=== PATIENT | male | born 1995 | race Hispanic/Latino ===

== ENCOUNTER 2019-07-26 03:52 | Emergency (ER) | payer OTHER ==
[2019-07-26] MEDS ORDERED: LIDOCAINE HCL 2% JELLY 5 ML ONE (04:37)
[2019-07-26] MEDS ORDERED: IBUPROFEN 600 MG TABLET ONE (04:37)
[2019-07-26] MEDS ORDERED: CLINDAMYCIN HCL 150 MG CAP ONE (04:37)
== END 2019-07-26 04:48 | disposition home or self-care (01) ==
LOC: EDH 03:52
DX: K04.7 Periapical abscess without sinus (principal); K05.10 Chronic gingivitis, plaque induced; Z88.0 Allergy status to penicillin

== ENCOUNTER 2022-06-13 14:33 | Emergency (ER) | payer OTHER ==
[~2022-06-13] VITALS: Ht 165.1 cm; Wt 83.9 kg
[2022-06-13 17:39] LABS: BASOPHILS % (AUTO) 0.4 % (0.0-5.0); EOSINOPHILS % (AUTO) 0.3 % (0.0-8.0); HEMATOCRIT 50.5 % (42-54); LYMPHOCYTES % (AUTO) 10.3 % (21.0-51.0); MEAN CORPUSCULAR HEMOGLOBIN 28.1 pg (27.0-33.0); MEAN CORPUSCULAR HGB CONC 33.1 g/dL (32.0-36.0); MEAN CORPUSCULAR VOLUME 84.9 fL (79-99); MONOCYTES % (AUTO) 3.7 % (3.0-13.0); PLATELET COUNT (AUTO) 368 K/uL (130-400); RED BLOOD CELL COUNT(AUTO) 5.95 MIL/uL (4.50-6.20); RED CELL DISTRIBUTION WIDTH 13.8 % (11.0-15.5); WHITE BLOOD COUNT (AUTO) 11.3 K/uL (4.8-10.8)
[2022-06-13] MEDS ORDERED: LACTULOSE 20 GM/30 ML UDCUP PO ONE (17:40)
[2022-06-13 17:50] LABS: CREATININE 1.1 mg/dL (0.5-1.5); POTASSIUM 3.7 mmol/L (3.5-5.1)
[2022-06-13 17:52] LABS: ALBUMIN 3.9 g/dL (3.5-5.0); TOTAL PROTEIN, SERUM 9.3 g/dL (6.0-8.3)
[2022-06-13] MEDS ORDERED: PEG 3350/NA SULF,BICARB,CL/KCL 4000 ML SOLN PO ONE (18:00)
[2022-06-13] MEDS ORDERED: IOHEXOL 350 MG/ML 100ML INFUS..BTL IV ONE (18:23)
[2022-06-13 19:30] VITALS: BP 114/69
== END 2022-06-13 19:49 | disposition home or self-care (01) ==
LOC: EDH 14:33
DX: C62.90 Malignant neoplasm of unspecified testis, unspecified whether descended or undescended (principal); Z88.0 Allergy status to penicillin
CPT/HCPCS: 99285; 71260; 83615; 80053; 84703; 85025; 82105; 36415; 74177; 76870; Q9967

== ENCOUNTER 2022-06-17 15:55 | Inpatient (IN) | payer OTHER ==
[~2022-06-17] VITALS: Ht 165.1 cm; Wt 81.6 kg
[2022-06-17] MEDS ORDERED: CEFAZOLIN SODIUM 1 GM VIAL IVP PRN (18:00)
[2022-06-17 18:58] LABS: HCG,QUANTITATIVE 217 mIU/mL (0-5); LACTATE DEHYDROGENASE 371 U/L (81-234)
[2022-06-17] MEDS ORDERED: ZOLPIDEM TARTRATE 5 MG TAB PO PRN (21:00)
[2022-06-17] MEDS ORDERED: ACETAMINOPHEN 325 MG TAB PO PRN ×2 (21:00)
[2022-06-17] MEDS ORDERED: ONDANSETRON 4MG INJ IV PRN (21:00)
[2022-06-17] MEDS ORDERED: MORPHINE 2 MG SYG IV PRN (21:00)
[2022-06-17] MEDS ORDERED: MORPHINE 4 MG SYG IV PRN (21:00)
[2022-06-17 21:30] LABS: BASOPHILS % (AUTO) 0.3 % (0.0-5.0); EOSINOPHILS % (AUTO) 0.2 % (0.0-8.0); HEMATOCRIT 47.3 % (42-54); LYMPHOCYTES % (AUTO) 15.5 % (21.0-51.0); MEAN CORPUSCULAR HEMOGLOBIN 28.2 pg (27.0-33.0); MEAN CORPUSCULAR HGB CONC 33.6 g/dL (32.0-36.0); MONOCYTES % (AUTO) 4.2 % (3.0-13.0); NEUTROPHILS % (AUTO) 79.5 % (40.0-77.0); PLATELET COUNT (AUTO) 386 K/uL (130-400); RED BLOOD CELL COUNT(AUTO) 5.63 MIL/uL (4.50-6.20); RED CELL DISTRIBUTION WIDTH 13.8 % (11.0-15.5); WHITE BLOOD COUNT (AUTO) 12.6 K/uL (4.8-10.8)
[2022-06-17 21:33] LABS: APPEARANCE,URINE CLEAR (CLEAR); BILIRUBIN,URINE NEGATIVE (NEGATIVE); COLOR,URINE LIGHT-YELLOW (YELLOW); GLUCOSE, URINE (UA) NEGATIVE (NEGATIVE); KETONES,URINE NEGATIVE (NEGATIVE); LEUKOCYTE ESTERASE ,URINE NEGATIVE Leu/uL (NEGATIVE); NITRATE,URINE NEGATIVE (NEGATIVE); OCCULT BLOOD,URINE NEGATIVE (NEGATIVE); PH,URINE 6.5 (5.0-8.0); PROTEIN,URINE NEGATIVE (NEGATIVE); UROBILINOGEN,URINE 0.2 mg/dL (0.2-1.0)
[2022-06-17 21:35] LABS: MUCUS,URINE RARE LPF (None Seen); WBC,URINE 0-1 /HPF (0-1)
[2022-06-17 21:38] LABS: POTASSIUM 3.5 mmol/L (3.5-5.1)
[2022-06-17 21:40] LABS: INR 1.01 (0.85-1.15)
[2022-06-17 21:41] LABS: PARTIAL THROMBOPLASTIN TIME 32.7 SEC (26.3-35.5)
[2022-06-17 21:47] LABS: ALBUMIN 3.6 g/dL (3.5-5.0); MAGNESIUM 1.9 mg/dL (1.80-2.40); TOTAL PROTEIN, SERUM 8.6 g/dL (6.0-8.3)
[2022-06-17] MEDS: LACTATED RINGERS 1000ML 1,000 ML IV SCH (22:12)
[2022-06-17] MEDS: FAMOTIDINE 20MG VIAL IV SCH (22:12)
[2022-06-17] MEDS: HEPARIN 5,000 UNIT VIAL SQ SCH (22:12)
[2022-06-18] VITALS (19 sets, daily range): BP systolic 92–134; BP diastolic 52–88
[2022-06-18 05:26] LABS: BASOPHILS % (AUTO) 0.3 % (0.0-5.0); EOSINOPHILS % (AUTO) 0.4 % (0.0-8.0); HEMATOCRIT 46.6 % (42-54); LYMPHOCYTES % (AUTO) 25.6 % (21.0-51.0); MEAN CORPUSCULAR HEMOGLOBIN 28.3 pg (27.0-33.0); MEAN CORPUSCULAR HGB CONC 32.8 g/dL (32.0-36.0); MEAN CORPUSCULAR VOLUME 86.3 fL (79-99); MONOCYTES % (AUTO) 6.1 % (3.0-13.0); NEUTROPHILS % (AUTO) 67.3 % (40.0-77.0); PLATELET COUNT (AUTO) 342 K/uL (130-400); RED CELL DISTRIBUTION WIDTH 13.9 % (11.0-15.5); WHITE BLOOD COUNT (AUTO) 11.5 K/uL (4.8-10.8)
[2022-06-18 05:41] LABS: CREATININE 1.2 mg/dL (0.5-1.5); POTASSIUM 3.8 mmol/L (3.5-5.1)
[2022-06-18] MEDS ORDERED: BUPIVACAINE/PF 0.5% 10ML VIAL ONE (08:19)
[2022-06-18] MEDS: HEPARIN 5,000 UNIT VIAL SQ SCH ×2 (09:00→13:43)
[2022-06-18] MEDS: FAMOTIDINE 20MG VIAL IV SCH (09:00)
[2022-06-18] MEDS: CEFTRIAXONE 1G VIAL ONE ×2 (10:12→10:30)
[2022-06-18] MEDS ORDERED: SUCCINYLCHOLINE 200MG/10ML SYR ONE (10:25)
[2022-06-18] MEDS ORDERED: LIDOCAINE PF 100MG/5ML (2%) SYRINGE 5ML ONE ×2 (10:25→10:28)
[2022-06-18] MEDS ORDERED: ONDANSETRON 4MG INJ ONE (10:25)
[2022-06-18] MEDS ORDERED: MIDAZOLAM HCL 1 MG/ML 2ML VIAL ONE (10:26)
[2022-06-18] MEDS ORDERED: PROPOFOL 10 MG/ML 20ML VIAL IV ONE (10:26)
[2022-06-18] MEDS ORDERED: GLYCOPYRROLATE 1 MG/5 ML SYRINGE ONE (10:26)
[2022-06-18] MEDS ORDERED: NEOSTIGMINE 5MG/5ML SYR IV ONE (10:26)
[2022-06-18] MEDS ORDERED: FENTANYL CITRATE PF 50 MCG/1 ML 2ML VIAL ONE ×2 (10:26→11:26)
[2022-06-18] MEDS ORDERED: ROCURONIUM 10MG/1ML SYR 10 MG/ML ML ONE (10:26)
[2022-06-18] MEDS ORDERED: MEPERIDINE-PF 25 MG/ML SYG ONE (11:56)
[2022-06-18] MEDS: LACTATED RINGERS 1000ML 1,000 ML IV SCH (13:40)
[2022-06-18] MEDS ORDERED: HYDROCODONE/ACETAMINOPHEN 7.5/325 MG TAB ONE (14:46)
[2022-06-18] MEDS ORDERED: HYDROCODONE/IBUPROFEN 7.5/200 MG TAB PO PRN (15:00)
== END 2022-06-18 16:50 | disposition home or self-care (01) | DRG 983 ==
LOC: EDH 15:55 → DIRECT 15:56 → 3CH 23:24
PROVIDERS: ADMIT Internal Medicine; ATTEND Internal Medicine
PROC: 0VT90ZZ Resection of Right Testis, Open Approach (ICD-10-PCS; principal; 2022-06-18 10:26)
DX: D49.59 Neoplasm of unspecified behavior of other genitourinary organ (principal); Z20.822 Contact with and (suspected) exposure to COVID-19
CPT/HCPCS: 36415; 80048; 80053; 81001; 82105; 83615; 83735; 84100; 84702; 85025; 85610; 85730; 86850; 86900; 86901; 87040; 87635; 93005; G0378; J0330; J0690; J0696; J1644; J2001; J2175; J2250; J2405; J2704; J2710; J3010; J3490; J7120

== ENCOUNTER 2022-08-08 11:52 | Emergency (ER) | payer OTHER ==
[~2022-08-08] VITALS: Ht 165.1 cm; Wt 93.9 kg
[2022-08-08 12:15] LABS: EOSINOPHILS % (AUTO) 1.4 % (0.0-8.0); HEMATOCRIT 40.9 % (42-54); LYMPHOCYTES % (AUTO) 72.2 % (21.0-51.0); MEAN CORPUSCULAR HEMOGLOBIN 28.5 pg (27.0-33.0); MEAN CORPUSCULAR HGB CONC 35.7 g/dL (32.0-36.0); MEAN CORPUSCULAR VOLUME 79.9 fL (79-99); MONOCYTES % (AUTO) 9.7 % (3.0-13.0); NEUTROPHILS % (AUTO) 16.7 % (40.0-77.0); PLATELET COUNT (AUTO) 102 K/uL (130-400); RED BLOOD CELL COUNT(AUTO) 5.12 MIL/uL (4.50-6.20); RED CELL DISTRIBUTION WIDTH 13.7 % (11.0-15.5)
[2022-08-08 12:20] LABS: WHITE BLOOD COUNT (AUTO) 0.7 K/uL (4.8-10.8)
[2022-08-08 12:21] LABS: CREATININE 0.8 mg/dL (0.5-1.5); POTASSIUM 3.9 mmol/L (3.5-5.1)
[2022-08-08 12:26] LABS: ALBUMIN 3.5 g/dL (3.5-5.0); TOTAL PROTEIN, SERUM 6.8 g/dL (6.0-8.3)
[2022-08-08] MEDS ORDERED: ONDANSETRON 4MG INJ IVP ONE (12:30)
[2022-08-08] MEDS ORDERED: ACETAMINOPHEN 500 MG TABLET PO ONE (12:30)
[2022-08-08] MEDS ORDERED: MORPHINE 4 MG SYG IVP ONE (12:30)
[2022-08-08] MEDS ORDERED: 0.9%NACL 1000ML 1,000 ML IV ONE (12:30)
[2022-08-08 14:07] LABS: APPEARANCE,URINE CLEAR (CLEAR); BILIRUBIN,URINE NEGATIVE (NEGATIVE); COLOR,URINE LIGHT-YELLOW (YELLOW); GLUCOSE, URINE (UA) NEGATIVE (NEGATIVE); KETONES,URINE 10 mg/dL (NEGATIVE); LEUKOCYTE ESTERASE ,URINE NEGATIVE Leu/uL (NEGATIVE); NITRATE,URINE NEGATIVE (NEGATIVE); OCCULT BLOOD,URINE NEGATIVE (NEGATIVE); PH,URINE 7.5 (5.0-8.0); PROTEIN,URINE NEGATIVE (NEGATIVE); UROBILINOGEN,URINE 0.2 mg/dL (0.2-1.0)
[2022-08-08 14:42] VITALS: BP 107/62
== END 2022-08-08 14:43 | disposition home or self-care (01) ==
LOC: EDH 11:52
DX: D70.9 Neutropenia, unspecified (principal); R50.81 Fever presenting with conditions classified elsewhere; Z20.822 Contact with and (suspected) exposure to COVID-19; Z88.0 Allergy status to penicillin
CPT/HCPCS: 99285; 96374; 71045; 87635; 96361; 96375; 84484; 80053; 85025; 85378; 87040 ×2; 87880; 87804 ×2; 83605; 81003; 36415; 93005; 85007; C9803; J7030; J2405; J2270

== ENCOUNTER 2023-04-23 17:00 | Emergency (ER) | payer OTHER ==
[~2023-04-23] VITALS: Ht 165.1 cm; Wt 72.6 kg
[~2023-04-23 17:00] MED LIST: AMOX-426 PO; DOXY100C5 PO; ONDA-105 PO; POTA-200 PO
[2023-04-23 17:51] LABS: APPEARANCE,URINE CLEAR (CLEAR); BILIRUBIN,URINE NEGATIVE (NEGATIVE); COLOR,URINE LIGHT-YELLOW (YELLOW); GLUCOSE, URINE (UA) NEGATIVE (NEGATIVE); KETONES,URINE NEGATIVE (NEGATIVE); LEUKOCYTE ESTERASE ,URINE NEGATIVE Leu/uL (NEGATIVE); NITRATE,URINE NEGATIVE (NEGATIVE); OCCULT BLOOD,URINE NEGATIVE (NEGATIVE); PROTEIN,URINE NEGATIVE (NEGATIVE); UROBILINOGEN,URINE 0.2 mg/dL (0.2-1.0)
[2023-04-23 17:52] LABS: ADD UA MICROSCOPIC NO
[2023-04-23 18:05] LABS: BASOPHILS # (AUTO) 0.02 K/uL (0.00-0.20); BASOPHILS % (AUTO) 0.2 % (0.0-5.0); EOSINOPHILS # (AUTO) 0.07 K/uL (0.00-0.70); EOSINOPHILS % (AUTO) 0.7 % (0.0-8.0); HEMATOCRIT 43.5 % (42-54); IMMATURE GRANULOCYTE ABSOLUTE 0.04 K/uL (0-1); LYMPHOCYTES # (AUTO) 1.4 K/uL (1.0-4.8); LYMPHOCYTES % (AUTO) 13.4 % (21.0-51.0); MEAN CORPUSCULAR HEMOGLOBIN 30.3 pg (27.0-33.0); MEAN CORPUSCULAR HGB CONC 34.3 g/dL (32.0-36.0); MEAN CORPUSCULAR VOLUME 88.6 fL (79-99); MONOCYTES # (AUTO) 0.4 K/uL (0.1-1.0); MONOCYTES % (AUTO) 3.3 % (3.0-13.0); NEUTROPHILS # (AUTO) 8.6 K/uL (1.8-7.7); PLATELET COUNT (AUTO) 241 K/uL (130-400); RED BLOOD CELL COUNT(AUTO) 4.91 MIL/uL (4.50-6.20); RED CELL DISTRIBUTION WIDTH 12.4 % (11.0-15.5); WHITE BLOOD COUNT (AUTO) 10.5 K/uL (4.8-10.8)
[2023-04-23 18:33] LABS: POTASSIUM 4.4 mmol/L (3.5-5.1)
[2023-04-23 18:41] LABS: BILIRUBIN,TOTAL 0.3 mg/dL (0.2-1.0); TOTAL PROTEIN, SERUM 8.6 g/dL (6.0-8.3)
[2023-04-23] MEDS ORDERED: ALBU90AE2 IH (20:14)
[2023-04-23] MEDS ORDERED: BENZ200C53 PO (20:14)
[2023-04-23] MEDS ORDERED: BROM118S48 PO (20:14)
[2023-04-23 21:02] VITALS: BP 112/70; PULSE 75; RESP 16; O2SAT 98
[2023-04-23 21:09] LABS: RAPID GROUP A STREP negative (NEGATIVE)
[2023-04-23 21:11] LABS: SARS-CoV-2, RNA, NAAT NEGATIVE SARS CoV-2 (NEGATIVE)
[2023-04-23 21:16] LABS: INFLUENZA TYPE A Negative For Type A (NEGATIVE); INFLUENZA TYPE B Negative For Type B (NEGATIVE)
== END 2023-04-23 21:32 | disposition home or self-care (01) ==
LOC: EDH 17:00
DX: J00 Acute nasopharyngitis [common cold] (principal); Z20.822 Contact with and (suspected) exposure to COVID-19
CPT/HCPCS: 99283; 87635; 80053; 85025; 87880; 87804 ×2; 81003; 36415; C9803

== ENCOUNTER 2024-06-30 05:16 | Emergency (ER) | payer BC, OTHER ==
[~2024-06-30] VITALS: Ht 167.6 cm; Wt 91.2 kg
[~2024-06-30 05:16] MED LIST changes: +ALBU90AE3 IH; +BENZ200C53 PO; +BROM118S48 PO
--- NOTE | 2024-06-30 05:57 | ERN ---
General Chief Complaint: Lower Extremity Pain/Injury Stated Complaint: RT LEG PAIN Time Seen by MD: 05:20 History of Present Illness Initial Comments 29-year-old male, history of prostate cancer in remission, presents for unprovoked right calf reports he has pain in her right calf for the last day or so. Moderate to severe. Increased movement and palpation. No swelling. No systemic illness. He denies injuring it, it appears to be an unprovoked. No other complaints. No history of DVT. Allergies: Coded Allergies: Penicillins (Verified Allergy, Mild, Rash, 03/19/23) Non-anaphylactic reaction. Body rash. Home Meds Active Scripts Albuterol Sulfate (Proair Digihaler) 90 Mcg Aer.pw.bas, 90 MCG IH TID PRN for WHEEZING, #1 INHALER Prov:CORKY CHARLES V [facility] 04/23/23 Benzonatate (Benzonatate) 200 Mg Capsule, 200 MG PO TID PRN for COUGH for 14 Days, #42 CAP Prov:CORKY CHARLES V [facility] 04/23/23 D-Methorphan Hb/P-Epd HCl/Bpm (Bromfed Dm Cough Syrup) 2 Mg-30 Mg-10 Mg/5 Ml Syrup, 10 ML PO Q4HPRN PRN for COUGH for 10 Days, #100 ML Prov:CORKY CHARLES V [facility] 04/23/23 Doxycycline Hyclate (Doxycycline Hyclate) 100 Mg Capsule, 100 MG PO BID for 5 Days, #10 CAP 0 Refills Prov:DENILSON ELLIOTT MD 03/23/23 Amoxicillin/Potassium Clav (Augmentin 500-125 Tablet) 500 Mg-125 Mg Tablet, 1 EACH PO DAILY for 5 Days, #5 TAB 0 Refills Prov:DENILSON ELLIOTT MD 03/23/23 Reported Medications Potassium Chloride (Potassium Chloride) 10 Meq Tab.er.prt, 1 TAB PO BID 10/04/22 Ondansetron HCl (Ondansetron HCl) 8 Mg Tablet, 1 TAB PO [id number] PRN for nausea/vomiting 10/04/22 Past Medical History Past Medical History: Other Medical History Other: TUMOR TESTICLE Past Surgical History: Other Surgical History Other: TESTICLE Family History Family History: Negative Social History Social History: Negative, Lives with family ROS Dictation CONSTITUTIONAL: No chills, no fever, no weakness, no diaphoresis, no malaise. HEAD/FACE: No signs of trauma. EENT: No eye pain, no blurred vision, no tearing, no double vision, no ear pain, no ear discharge, no nose pain, no nasal congestion, no throat pain, no throat swelling, no mouth pain. RESPIRATORY: No cough, no orthopnea, no SOB, no stridor, no wheezing. CARDIOVASCULAR: No chest pain, no edema, no palpitations, no syncope. GASTROINTESTINAL/ABDOMINAL: No abdominal pain, no constipation, no diarrhea, no nausea, no vomiting. GENITOURINARY: No abnormal discharge, no dysuria, no frequent urination, no hematuria. No complaints of pain in the genitals. MUSCULOSKELETAL: Right leg pain INTEGUMENTARY: No change in color, no change in hair/nails, no dryness, no lesion, no lumps, no rash. NEUROLOGICAL/PSYCH: No anxiety, not depressed, no emotional problem, no headache, no numbness, no pre-existing deficit, no history of seizures, no tremors, no weakness. HEMATOLOGIC/LYMPHATIC: Not anemic, no history of blood clots, no apparent bleeding, no bruising, glands not swollen. All Systems Negative, Except as Noted. Physical Exam Physical Exam Dictation VITAL SIGNS: Reviewed. GENERAL APPEARANCE: Alert, oriented x3, no acute distress, obese. HEAD AND FACE: Non-traumatic. EYES: PERRL, pink conjunctivas, eyelid no trauma, anterior chamber clear. EARS: Pinnas intact and no signs of trauma or erythema. Ear canals clear and no discharge. TMs no erythema. NOSE: No discharge, no bleeding. OROPHARYNX: Mouth normal, teeth no caries, tongue pink. Pharynx clear, no erythema. Tonsils no exudates, no abscesses noted. Mucous membrane moist. NECK: Supple, non-tender, no thyromegaly, no masses, no JVD, no bruits. BREAST: Deferred. CHEST: No tenderness, no crepitus, no paradoxical movement, no retractions. LUNGS: Clear, well-ventilated, symmetric, no rales, no wheezing, no rhonchi, no stridor, good breath sounds bilaterally. HEART: Regular rate, regular rhythm, no murmur, no gallops. VASCULAR: No peripheral edema. ABDOMEN: Soft, positive bowel sounds, nondistended, no guarding, nontender, no rebound, no masses no hepatomegaly, no splenomegaly, no Joe's sign, no hernias. RECTAL: Deferred. GENITAL: Deferred. NEUROLOGICAL: Normal speech, gross motor function intact, gross sensory function intact. MUSCULOSKELETAL: Neck nontender, full range of motion, back nontender, full range of motion. EXTREMITIES: Nontender, full range of motion. SKIN: Color pink, dry, no turgor, no rash, no lacerations, no abrasions, no contusions. LYMPHATICS: Deferred. MDM CC: Right calf pain unprovoked Historian: Patient Comorbidities: Distant history of prostate cancer, in remission Limitations by social determinants of health: None Differential diagnosis: MSK pain, cellulitis, DVT, other. Clinically there Are no signs of skin disease or infection. No signs of muscular vascular disorder. X-ray of the knee and tib-fib (independently interpreted by me ): No acute fractures or bony abnormalities. Ultrasound right lower leg Doppler venous (independently interpreted by me ): No acute DVT Likely MSK type pain. We will DC with NSAID, recommend RICE and follow up. ED Course Orders Procedure Category Date Status Time Knee 3vws Rt RAD 06/30/24 Taken 05:23 Tibia/Fibula 2vws Rt RAD 06/30/24 Taken 05:23 Us Venous Doppler US 06/30/24 Taken Unilateral 05:23 Vital Signs Date Time Temp Pulse Resp B/P (MAP) Pulse Ox O2 Delivery O2 Flow Rate FiO2 06/30/24 05:59 98.2 101 22 128/79 98 Room Air* 0 21 06/30/24 05:18 98.8 100 18 129/80 100 Room Air DX & DISP Disposition: Discharge Departure Impression: Primary Impression: Right leg pain Additional Impression: Musculoskeletal pain Condition: Stable Additional Instructions: There are no dangerous findings on your workup here today. Your symptoms are likely musculoskeletal in nature, such as a sprain/strain. The x-rays are unremarkable. The ultrasound shows no signs of blood clot. I recommend that you take an NSAIDs such as ibuprofen or naproxen as needed for pain. These medications are [id number]. Please rest the leg as needed. Apply ice frequently. Use a compression device such as an Mayito wrap as needed. Elevate as much as possible. If you continue with symptoms over the next week or so, I recommend that you follow up with your primary doctor for re-evaluation. Please return to the emergency department as needed. Referrals: LUCAS HEAD MD (PCP) ADITI CASTILLO DO Jun 30, 2024 05:57
[2024-06-30 05:59] VITALS: TEMP 98.3
[2024-06-30 06:41] VITALS: BP 114/77; PULSE 85; RESP 20; O2SAT 97
--- NOTE | 2024-06-30 08:50 | HMCIMG ---
TIBIA/FIBULA 2VWS RT HISTORY: Pain COMPARISON: None TECHNIQUE: 2 images of right tibia and fibula were obtained. FINDINGS: There is no acute displaced fracture or dislocation. IMPRESSION: 1. Findings as described above.
--- NOTE | 2024-06-30 08:52 | HMCIMG ---
KNEE 3VWS RT HISTORY: Pain COMPARISON: None TECHNIQUE: 3 images of right knee were obtained. FINDINGS: There is no acute displaced fracture or dislocation. IMPRESSION: 1. Findings as described above.
--- NOTE | 2024-06-30 10:14 | HMCIMG ---
US VENOUS DOPPLER UNILATERAL HISTORY: DVT COMPARISON: None TECHNIQUE: Right lower extremity venous Doppler ultrasound study was performed. FINDINGS: The right common femoral, femoral, popliteal, and posterior tibial veins are visualized. Normal flow with augmentation and compressibilities are demonstrated. Right greater saphenous vein is patent. IMPRESSION: 1. No evidence of deep venous thrombosis is seen.
== END 2024-06-30 06:50 | disposition home or self-care (01) ==
LOC: EDH 05:16
DX: M79.661 Pain in right lower leg (principal); M79.18 Myalgia, other site; Z79.899 Other long term (current) drug therapy; Z85.46 Personal history of malignant neoplasm of prostate; Z88.0 Allergy status to penicillin
CPT/HCPCS: 73562; 73590; 93971; 99284

== ENCOUNTER 2024-07-22 13:36 | Inpatient (IN) | payer SELFPAY ==
[~2024-07-22] VITALS: Ht 152.4 cm; Wt 87.1 kg
--- NOTE | 2024-07-22 14:16 | ERN ---
General Chief Complaint: Abscess Stated Complaint: ABSCESS Source: patient History of Present Illness Initial Comments PATIENT IT WAS A 29-YEAR-OLD MALE COMING IN TO BE EVALUATED FOR PERIRECTAL ABSCESS. PATIENT STATES HE HAS PAIN AND THE PERIRECTAL AREA WHICH HAS BEEN ONGOING FOR A COUPLE OF DAYS. PATIENT ALSO STATES THAT HE HAD A PERIRECTAL ABSCESS DRAINED COUPLE OF MONTHS AGO. Allergies: Coded Allergies: Penicillins (Verified Allergy, Mild, Rash, 03/19/23) Non-anaphylactic reaction. Body rash. Home Meds Discontinued Reported Medications Potassium Chloride (Potassium Chloride) 10 Meq Tab.er.prt, 1 TAB PO BID 10/04/22 Ondansetron HCl (Ondansetron HCl) 8 Mg Tablet, 1 TAB PO [id number] PRN for nausea/vomiting 10/04/22 Discontinued Scripts Albuterol Sulfate (Proair Digihaler) 90 Mcg Aer.pw.bas, 90 MCG IH TID PRN for WHEEZING, #1 INHALER Prov:CORKY CHARLES V [facility] 04/23/23 Benzonatate (Benzonatate) 200 Mg Capsule, 200 MG PO TID PRN for COUGH for 14 Days, #42 CAP Prov:CORKY CHARLES V [facility] 04/23/23 D-Methorphan Hb/P-Epd HCl/Bpm (Bromfed Dm Cough Syrup) 2 Mg-30 Mg-10 Mg/5 Ml Syrup, 10 ML PO Q4HPRN PRN for COUGH for 10 Days, #100 ML Prov:CORKY CHARLES V [facility] 04/23/23 Doxycycline Hyclate (Doxycycline Hyclate) 100 Mg Capsule, 100 MG PO BID for 5 Days, #10 CAP 0 Refills Prov:DENILSON ELLIOTT MD 03/23/23 Amoxicillin/Potassium Clav (Augmentin 500-125 Tablet) 500 Mg-125 Mg Tablet, 1 EACH PO DAILY for 5 Days, #5 TAB 0 Refills Prov:DENILSON ELLIOTT MD 03/23/23 Past Medical History Past Medical History: Other Medical History Other: TUMOR TESTICLE Past Surgical History: Other Surgical History Other: TESTICLE Family History Family History: Negative Social History Social History: Negative, Lives with family ROS Dictation CONSTITUTIONAL: NO CHILLS, NO FEVER, NO WEAKNESS, NO DIAPHORESIS, NO MALAISE. HEAD/FACE: NO SIGNS OF TRAUMA. EENT: NO EYE PAIN, NO BLURRED VISION, NO TEARING, NO DOUBLE VISION, NO EAR JHONNY N, NO EAR DISCHARGE, NO NOSE PAIN, NO NASAL CONGESTION, NO THROAT PAIN, NO THROAT SWELLING, NO MOUTH PAIN. RESPIRATORY: NO COUGH, NO ORTHOPNEA, NO SOB, NO STRIDOR, NO WHEEZING. CARDIOVASCULAR: NO CHEST PAIN, NO EDEMA, NO PALPITATIONS, NO SYNCOPE. GASTROINTESTINAL/ABDOMINAL: NO ABDOMINAL PAIN, NO CONSTIPATION, NO DIARRHEA, NO NAUSEA, NO VOMITING. GENITOURINARY: NO ABNORMAL DISCHARGE, NO DYSURIA, NO FREQUENT URINATION, NO HEMATURIA. NO COMPLAINTS OF PAIN IN THE GENITALS. MUSCULOSKELETAL: NO BACK PAIN, NO GOUT, NO JOINT PAIN, NO JOINT SWELLING, NO MUSCLE PAIN, NO MUSCLE STIFFNESS, NO NECK PAIN. INTEGUMENTARY: NO CHANGE IN COLOR, NO CHANGE IN HAIR/NAILS, NO DRYNESS, NO LESION, NO LUMPS, NO RASH. NEUROLOGICAL/PSYCH: NO ANXIETY, NOT DEPRESSED, NO EMOTIONAL PROBLEM, NO HEADACHE, NO NUMBNESS, NO PRE-EXISTING DEFICIT, NO HISTORY OF SEIZURES, NO TREMORS, NO WEAKNESS. HEMATOLOGIC/LYMPHATIC: NOT ANEMIC, NO HISTORY OF BLOOD CLOTS, NO APPARENT BLEEDING, NO BRUISING, GLANDS NOT SWOLLEN. ALL SYSTEMS NEGATIVE, EXCEPT NOTED. Physical Exam Physical Exam Dictation VITAL SIGNS: REVIEWED. GENERAL APPEARANCE: ALERT, ORIENTED X3, NO ACUTE DISTRESS, OBESE. HEAD AND FACE: NON-TRAUMATIC. EYES: PERRL, PINK CONJUNCTIVAS, EYELID NO TRAUMA, ANTERIOR CHAMBER CLEAR. EARS: PINNAS INTACT AND NO SIGNS OF TRAUMA OR ERYTHEMA. EAR CANALS CLEAR AND NO DISCHARGE. TMS NO ERYTHEMA. NOSE: NO DISCHARGE, NO BLEEDING. OROPHARYNX: MOUTH NORMAL, TEETH NO CARIES, TONGUE PINK. PHARYNX CLEAR, NO ERYTHEMA. TONSILS NO EXUDATES, NO ABSCESSES NOTED. MUCOUS MEMBRANE MOIST. NECK: SUPPLE, NON-TENDER, NO THYROMEGALY, NO MASSES, NO JVD, NO BRUITS. BREAST: DEFERRED. CHEST: NO TENDERNESS, NO CREPITUS, NO PARADOXICAL MOVEMENT, NO RETRACTIONS. LUNGS: CLEAR, WELL-VENTILATED, SYMMETRIC, NO RALES, NO WHEEZING, NO RHONCHI, NO STRIDOR, GOOD BREATH SOUNDS BILATERALLY. HEART: REGULAR RATE, REGULAR RHYTHM, NO MURMUR, NO GALLOPS. VASCULAR: NO PERIPHERAL EDEMA. ABDOMEN: SOFT, POSITIVE BOWEL SOUNDS, NONDISTENDED, NO GUARDING, NONTENDER, NO REBOUND, NO MASSES NO HEPATOMEGALY, NO SPLENOMEGALY, NO UREÑA'S SIGN, NO HERNIAS. RECTAL: DEFERRED. GENITAL: DEFERRED. NEUROLOGICAL: NORMAL SPEECH, GROSS MOTOR FUNCTION INTACT, GROSS SENSORY FUNCTION INTACT. MUSCULOSKELETAL: NECK NONTENDER, FULL RANGE OF MOTION, BACK NONTENDER, FULL RANGE OF MOTION. EXTREMITIES: NONTENDER, FULL RANGE OF MOTION. SKIN: COLOR PINK, DRY, NO TURGOR, NO RASH, NO LACERATIONS, NO ABRASIONS, NO CONTUSIONS. LYMPHATICS: DEFERRED. Results Laboratory and Microbiology Lab and Micro Result Laboratory Tests Test 07/22/24 14:30 07/22/24 16:00 White Blood Count 17.9 K/uL (4.8-10.8) H Red Blood Count 5.51 MIL/uL (4.50-6.20) Hemoglobin 16.2 g/dL (14.0-18.0) Hematocrit 47.6 % (42-54) Mean Corpuscular Volume 86.4 fL (79-99) Mean Corpuscular Hemoglobin 29.4 pg (27.0-33.0) Mean Corpuscular Hemoglobin Concent 34.0 g/dL (32.0-36.0) Red Cell Distribution Width 13.3 % (11.0-15.5) Platelet Count 300 K/uL (130-400) Mean Platelet Volume 9.2 fL (7.5-10.5) Immature Granulocyte % (Auto) 0.6 % (0-1) Neutrophils (%) (Auto) 89.5 % (40.0-77.0) H Lymphocytes (%) (Auto) 4.8 % (21.0-51.0) L Monocytes (%) (Auto) 4.8 % (3.0-13.0) Eosinophils (%) (Auto) 0.1 % (0.0-8.0) Basophils (%) (Auto) 0.2 % (0.0-5.0) Neutrophils # (Auto) 16.0 K/uL (1.8-7.7) H Lymphocytes # (Auto) 0.9 K/uL (1.0-4.8) L Monocytes # (Auto) 0.9 K/uL (0.1-1.0) Eosinophils # (Auto) 0.01 K/uL (0.00-0.70) Basophils # (Auto) 0.04 K/uL (0.00-0.20) Absolute Immature Granulocyte (auto 0.11 K/uL (0-1) Nucleated Red Blood Cells 0.0 % (0.0-0.19) White Cell Morphology Comment See comments Prothrombin Time 11.8 SEC (9.6-11.6) H Prothromb Time International Ratio 1.06 (0.85-1.15) Activated Partial Thromboplast Time 33.3 SEC (26.3-35.5) Sodium Level 138 mmol/L (136-145) Potassium Level 3.6 mmol/L (3.5-5.1) Chloride Level 102 mmol/L (101-111) Carbon Dioxide Level 24 mmol/L (21-32) Blood Urea Nitrogen 13 mg/dL (7-18) Creatinine 1.3 mg/dL (0.5-1.3) Glomerular Filtration Rate Calc 76 mL/min (>90) Random Glucose 106 mg/dL (70-105) H Total Calcium 9.6 mg/dL (8.5-10.1) Troponin I High Sensitivity < 4 ng/L (4-75) L Procalcitonin < 0.05 ng/mL (0.05-0.5) L Lactic Acid Level 1.1 mmol/L (0.8-2.5) Total Creatine Kinase 219 U/L (21-232) # Labs Reviewed?: Yes EKG/XRAY/US/CT/MRI CT Scan Comment [address] [place] [id number] IMAGING REPORT Signed PATIENT: ANABEL TERRELL MR#: [id number] : 1995 SEX: M AGE: 29 LOCATION: [facility] ORDER 17 STATUS: REG ER REPORT#: [id number] SERVICE 16 REASON: PERIRECTAL ABSCESS ORDERING PHYSICIAN: HANY SKY MD PROCEDURE: ABD PEL W - CT ABDOMEN/PELVIS W/CONTRAST CT ABDOMEN/PELVIS W/CONTRAST HISTORY: PERIRECTAL ABSCESS TECHNIQUE: CT ABDOMEN/PELVIS W/CONTRAST Omnipaque contrast was used. Oral contrast was not given. Coronal and sagittal reformats were obtained. CT was performed with one or more of the following dose reduction techniques: Automated exposure control, adjustment of the mA and/or kV according to the patient's size, or use of the iterative reconstruction technique. Comparison: CT dated 06/13/2019 FINDINGS: No pulmonary consolidation or pleural effusion is seen. Unremarkable liver parenchyma. Gallstones are seen. There is no CT evidence of gallbladder wall thickening. The spleen, pancreas, and adrenal glands are within normal limits. No hydronephrosis. The urinary bladder is partially distended. 8.8 x 2.3 cm air-fluid collection seen in the right perirectal region suggesting perirectal abscess. Small amount of air is seen which may may be related to open ulcer versus gas-forming infection such as necrotizing infection. Correlate clinically. 3.3 cm cystic structure seen in the right pelvis, incompletely characterized. No bowel obstruction identified. Appendix is normal in caliber. Visualized aorta is normal in caliber. No acute osseous findings. IMPRESSION: 1. 8.8 x 2.3 cm air-fluid collection seen in the right perirectal region/right medial gluteal fold suggesting abscess. Small amount of air is seen which may may be related to open drainage versus gas-forming infection such as necrotizing infection. Correlate clinically. 2. 3.3 cm cystic structure seen in the right pelvis, incompletely characterized. DICTATED BY: ALESSIO TAYLOR MD DATE: 07/22/241830 ELECTRONICALLY SIGNED BY: ALESSIO TAYLOR MD DATE: 07/22/24 183 [facility] MDM: DIFFERENTIAL DIAGNOSIS: SEPSIS, PERIRECTAL ABSCESS, RATIONALE: TESTS CONSIDERED AND ORDERED SECONDARY TO SHARED DECISION MAKING INCLUDE: LABS, ECG AND RADIOLOGY PREVIOUS OUTSIDE RECORDS REVIEWED: OLD ER VISITS. RISK OF COMPLICATION AND/OR MORBIDITY OR MORTALITY OF PATIENT MANAGEMENT: NONE MEDICATIONS-PER MEDICATION RECONCILIATION NEED FOR HOSPITALIZATION: PATIENT DOES MEET CRITERIA FOR HOSPITALIZATION. NEED FOR EMERGENCY MAJOR/MINOR SURGERY: NO THERE ARE NO SOCIAL CONCERNS WITH THIS PATIENT. PRESCRIPTION DRUG MANAGEMENT PRESCRIPTIONS WILL INCLUDE SYMPTOMATIC CARE PATIENT'S PRIOR EXTERNAL MEDICAL RECORDS FROM OTHER ER VISITS WERE REVIEWED BY ME INDICATED. PRIOR TESTING AND RESULTS FROM PREVIOUS VISITS WERE REVIEWED. PRIOR TESTS WERE TAKEN INTO ACCOUNT WITH MEDICAL DECISION MAKING AND RESOURCE UTILIZATION, INDEPENDENT HISTORIAN/HISTORIANS WERE USED TO OBTAIN COMPLETE MEDICAL HISTORY. I INDEPENDENTLY INTERPRETED THE TEST THAT WERE PERFORMED, RESULTS WERE REVIEWED BY ME AND CONSIDERED FINDINGS ON RADIOLOGY IF ORDERED. MEDICAL MANAGEMENT AND EXAMINATION INTERPRETATION DISCUSSIONS WERE HAD BY ME WITH OTHER QUALIFIED HEALTHCARE PROFESSIONALS INDICATED FOR THE PATIENT'S CARE. ED Course 7:00 p.m. patient was initially to be signed out to me however Dr. Sky took care of the admission to the hospitalist group. I was not involved in the care of this patient Orders Procedure Category Date Status Time Cbc With Differential LAB 07/22/24 Complete 13:43 Basic Metabolic Panel LAB 07/22/24 Complete 13:43 Acetaminophen 650mg PHA 07/22/24 In Process Elixir (Tylenol 650m 15:30 Blood Cult LORIN 07/22/24 In Process 15:03 Lactic Acid LAB 07/22/24 Complete 15:03 Creatine Kinase, Total LAB 07/22/24 Complete 15:03 Prothrombin Time With LAB 07/22/24 Complete INR 16:13 Partial LAB 07/22/24 Complete Thromboplastin Time 16:13 Urinalysis Profile LAB 07/22/24 Logged 16:13 Culture Urine LORIN 07/22/24 Logged 16:13 Vancomycin 1g/250ml PHA 07/22/24 Complete Kit (Vancomycin 1g/2 16:30 0.9%Nacl 1000ml (Ns PHA 07/22/24 In Process 1000ml) 16:30 Troponin I High LAB 07/22/24 Complete Sensitivity 16:13 Procalcitonin LAB 07/22/24 Complete 16:13 Ct Abdomen/Pelvis CT 07/22/24 Resulted W/Contrast 17:17 Iohexol (Omnipaque) PHA 07/22/24 Complete 17:44 Current Medications Medications (Trade) Dose Ordered Sig/Rocky Route PRN Reason Start Time Stop Time Status Last Admin Dose Admin Acetaminophen (TYLenol 650MG ELIXIR) 650 mg ONCE PRN PO TEMPERATURE GREATER THAN 101.5 07/22/24 15:30 08/21/24 15:29 07/22/24 15:53 Iohexol (Omnipaque) 75 ml STK-MED ONCE IV 07/22/24 17:44 07/22/24 17:44 DC Sodium Chloride 2,721 ml @ 907 mls/hr ONCE ONCE IV 07/22/24 16:30 07/22/24 19:29 07/22/24 18:04 Vancomycin HCl 250 ml @ 125 mls/hr ONCE ONCE IV 07/22/24 16:30 07/22/24 18:29 DC 07/22/24 18:04 Vital Signs Date Time Temp Pulse Resp B/P (MAP) Pulse Ox O2 Delivery O2 Flow Rate FiO2 07/22/24 16:50 98.2 125 31 107/68 98 Room Air* 0 21 07/22/24 15:53 100.0 07/22/24 15:50 98.2 125 31 107/68 98 Room Air* 0 21 07/22/24 14:53 99.3 140 31 125/72 98 Room Air* 0 21 07/22/24 14:06 100.6 143 22 137/85 95 Room Air 0 Problem List Problem Lists: (1) Sepsis (2) Perirectal abscess DX & DISP Disposition: Inpatient Departure Impression: Primary Impression: Perirectal abscess Additional Impression: Sepsis Condition: Stable Scripts No Active Prescriptions or Reported Meds Additional Instructions: Patient was informed of all the diagnostic labs and procedures conducted in the emergency room today and demonstrated understanding of the results. I personally reviewed and interpreted all the diagnostic exams performed in the ER today. The patient will be admitted to the hospital for further treatment and evaluation. Disposition-admit to facility Condition-stable/guarded Course-uncertain at this time Pain status-decreased Assessment-exam unchanged Admission Certification- I certify that the patients status is appropriate and is based on my best clinical judgment and the patient's condition as documented in the medical records Referrals: LUCAS HEAD MD (PCP) HANY SKY MD Jul 22, 2024 14:16 JHON SOLIMAN MD Jul 23, 2024 01:52
[2024-07-22 14:43] LABS: BASOPHILS # (AUTO) 0.04 K/uL (0.00-0.20); BASOPHILS % (AUTO) 0.2 % (0.0-5.0); EOSINOPHILS # (AUTO) 0.01 K/uL (0.00-0.70); EOSINOPHILS % (AUTO) 0.1 % (0.0-8.0); HEMATOCRIT 47.6 % (42-54); IMMATURE GRANULOCYTE ABSOLUTE 0.11 K/uL (0-1); LYMPHOCYTES # (AUTO) 0.9 K/uL (1.0-4.8); LYMPHOCYTES % (AUTO) 4.8 % (21.0-51.0); MEAN CORPUSCULAR HEMOGLOBIN 29.4 pg (27.0-33.0); MEAN CORPUSCULAR VOLUME 86.4 fL (79-99); MONOCYTES # (AUTO) 0.9 K/uL (0.1-1.0); MONOCYTES % (AUTO) 4.8 % (3.0-13.0); NEUTROPHILS % (AUTO) 89.5 % (40.0-77.0); PLATELET COUNT (AUTO) 300 K/uL (130-400); RED BLOOD CELL COUNT(AUTO) 5.51 MIL/uL (4.50-6.20); RED CELL DISTRIBUTION WIDTH 13.3 % (11.0-15.5); WHITE BLOOD COUNT (AUTO) 17.9 K/uL (4.8-10.8)
[2024-07-22 14:53] LABS: CREATININE 1.3 mg/dL (0.5-1.3); POTASSIUM 3.6 mmol/L (3.5-5.1)
[2024-07-22] MEDS: acetaMINOPHEN 650 MG/20.3 ML UDCUP PO PRN (15:53)
[2024-07-22 16:59] LABS: INR 1.06 (0.85-1.15); PROTHROMBIN TIME 11.8 SEC (9.6-11.6)
[2024-07-22 17:01] LABS: PARTIAL THROMBOPLASTIN TIME 33.3 SEC (26.3-35.5)
[2024-07-22 17:07] VITALS: TEMP 99.2
[2024-07-22] MEDS ORDERED: IOHEXOL-350 75 ML VIAL IV ONE (17:44)
[2024-07-22] MEDS: VANCOMYCIN 1G/250ML KIT 250 ML IV ONE (18:04)
[2024-07-22] MEDS: 0.9%NACL 1000ML 2,721 ML IV ONE (18:04)
--- NOTE | 2024-07-22 18:36 | HMCIMG ---
CT ABDOMEN/PELVIS W/CONTRAST HISTORY: PERIRECTAL ABSCESS TECHNIQUE: CT ABDOMEN/PELVIS W/CONTRAST Omnipaque contrast was used. Oral contrast was not given. Coronal and sagittal reformats were obtained. CT was performed with one or more of the following dose reduction techniques: Automated exposure control, adjustment of the mA and/or kV according to the patient's size, or use of the iterative reconstruction technique. Comparison: CT dated 06/13/2019 FINDINGS: No pulmonary consolidation or pleural effusion is seen. Unremarkable liver parenchyma. Gallstones are seen. There is no CT evidence of gallbladder wall thickening. The spleen, pancreas, and adrenal glands are within normal limits. No hydronephrosis. The urinary bladder is partially distended. 8.8 x 2.3 cm air-fluid collection seen in the right perirectal region suggesting perirectal abscess. Small amount of air is seen which may may be related to open ulcer versus gas-forming infection such as necrotizing infection. Correlate clinically. 3.3 cm cystic structure seen in the right pelvis, incompletely characterized. No bowel obstruction identified. Appendix is normal in caliber. Visualized aorta is normal in caliber. No acute osseous findings. IMPRESSION: 1. 8.8 x 2.3 cm air-fluid collection seen in the right perirectal region/right medial gluteal fold suggesting abscess. Small amount of air is seen which may may be related to open drainage versus gas-forming infection such as necrotizing infection. Correlate clinically. 2. 3.3 cm cystic structure seen in the right pelvis, incompletely characterized.
[2024-07-22] MEDS ORDERED: VANCOMYCIN 1G/250ML KIT 250 ML IV ONE (22:00)
[2024-07-22] MEDS ORDERED: ondanSETRON 4MG INJ IV PRN (22:00)
[2024-07-22] MEDS ORDERED: acetaMINOPHEN 325 MG TAB PO PRN ×2 (22:00)
--- NOTE | 2024-07-22 22:11 | HP ---
[facility] HISTORY AND PHYSICAL Date of Service: Jul 22, 2024 Time of Service: 21:53 PCP: self referral HISTORY OF PRESENT ILLNESS: This is a 29-year-old male with past medical history of mixed germ-cell tumor status post chemotherapy , right Port-A-Cath, perirectal abscess with I and D, anxiety disorder, obesity and hyperlipidemia who presents to the ED for evaluation of right perirectal abscess which started two days ago and patient has been having pain and started having fever.Patient reports he had similar problem like this before and was told it was a perirectal abscess that was drained on 03/19/2023. Patient denies any other symptoms. Latest vital signs temperature 98.6, heart rate 117, respiration 22, blood pressure 108/66, saturation 98% on room air. Labs: WBC 17.9 with negative left shift of neutrophils 89, hemoglobin 16, hematocrit 47, platelet count 300. lactic acid 1.1, procalcitonin less than 0.05 troponin less than four total CK 219 glucose 106 the rest of the chemistry are normal. While in the ER patient received IV fluid resuscitation 30 mL/kilogram over 3 hours, vancomycin. We will admit patient for further medical management. REVIEW OF SYSTEMS CONSTITUTIONAL: Denies fevers, chills, or night sweats. No unintentional weight loss reported. NEUROLOGICAL: Denies headache, amaurosis fugax, motor weakness, sensory deficit, vertigo/spinning sensation, gait abnormalities, or tremors. ENT: No hearing loss, otalgia, otorrhea, rhinitis, rhinorrhea, hoarseness, or sore throat. CARDIOVASCULAR: Denies any exertional angina, dyspnea on exertion, orthopnea, paroxysmal nocturnal dyspnea, palpitations, life-threatening arrhythmias, claudication. PULMONARY: Denies any shortness of breath, cough, phlegm/sputum, hemoptysis, pleuritic chest pain. SLEEP: Denies morning headaches, daytime somnolence or napping. Denies difficulty falling asleep, staying asleep, waking from sleep. Denies knowledge of snoring. GASTROINTESTINAL: Denies any type of dysphagia to either liquids or solids. Denies nausea, vomiting, pyrosis, early satiety, abdominal pain, diarrhea, constipation, or changes in stool consistency or caliber. Denies coffee-ground emesis, hematemesis, hematochezia, or melanotic stools. GENITOURINARY: Right perirectal pain Denies frequency, urgency, nocturia, hematuria or incontinence (Storage/Irritative symptoms.) Low urinary stream, straining to void, urinary intermittency or hesitancy, splitting of the voiding stream, terminal dribbling. ENDOCRINOLOGIC: Denies polyuria, polydipsia, polyphagia or heat/cold into lerances. HEMATOLOGIC: Denies thrombophilia/previous clots, or coagulopathy/bleeding disorders. ONCOLOGIC: Denies personal history of malignancy. DERMATOLOGIC: Denies rashes or pruritus. PSYCHIATRIC: Denies any suicidal or homicidal ideation. Denies hallucinations. PAST MEDICAL HISTORY: mixed germ-cell tumor status post chemotherapy , perirectal abscess anxiety disorder, obesity and hyperlipidemia PAST SURGICAL HISTORY: [ Right radical orchiectomy, Port-A-Cath placement and I and D ] PAST SOCIAL HISTORY: [Patient lives with mother. Patient denies alcohol tobacco and recreational drug use ] FAMILY HISTORY: [Noncontributory ] Coded Allergies: Penicillins (Verified Allergy, Mild, Rash, 03/19/23) Non-anaphylactic reaction. Body rash. PHYSICAL EXAM GENERAL APPEARANCE: The patient is awake, alert, and oriented, in no acute cardiopulmonary distress. NEUROLOGICAL: Cranial nerves II-XII grossly intact. Motor is 5/5 in bilateral upper and lower extremities proximal to distal. No sensory deficits. HEENT: Face is symmetric. Pupils are equal and reactive. Extraocular movements are intact. NECK: Supple. No JVD. No thyromegaly. No submental, submandibular, pre- /postauricular, occipital or supraclavicular lymphadenopathy. CHEST: Normal chest expansion. No Telemetry. LUNGS: Absence of any rales, rhonchi or any wheezing. CARDIOVASCULAR: Regular. S1 and S2 normal. No appreciable rubs, murmurs or gallops. ABDOMEN: Soft, nontender, and nondistended. There is no rebound, voluntary guarding, or rigidity. : Deferred. No Butler. EXTREMITIES: Non-edematous and not cyanotic. No clubbing. Good capillary refill. SKIN: No skin breakdown. Vital Sign (Last 24 Hours) 07/22/24 20:00 Temp 98.6 Pulse 117 Resp 22 B/P (MAP) 108/66 Pulse Ox 98 O2 Delivery Room Air* O2 Flow Rate 0 FiO2 21 LABS: Laboratory: Test 07/22/24 16:00 07/22/24 14:30 Range/Units Lactic Acid Level 1.1 0.8-2.5 mmol/L Total Creatine Kinase 219 # 21-232 U/L White Blood Count 17.9 H 4.8-10.8 K/uL Red Blood Count 5.51 4.50-6.20 MIL/uL Hemoglobin 16.2 14.0-18.0 g/dL Hematocrit 47.6 42-54 % Mean Corpuscular Volume 86.4 79-99 fL Mean Corpuscular Hemoglobin 29.4 27.0-33.0 pg Mean Corpuscular Hemoglobin Concent 34.0 32.0-36.0 g/dL Red Cell Distribution Width 13.3 11.0-15.5 % Platelet Count 300 130-400 K/uL Mean Platelet Volume 9.2 7.5-10.5 fL Immature Granulocyte % (Auto) 0.6 0-1 % Neutrophils (%) (Auto) 89.5 H 40.0-77.0 % Lymphocytes (%) (Auto) 4.8 L 21.0-51.0 % Monocytes (%) (Auto) 4.8 3.0-13.0 % Eosinophils (%) (Auto) 0.1 0.0-8.0 % Basophils (%) (Auto) 0.2 0.0-5.0 % Neutrophils # (Auto) 16.0 H 1.8-7.7 K/uL Lymphocytes # (Auto) 0.9 L 1.0-4.8 K/uL Monocytes # (Auto) 0.9 0.1-1.0 K/uL Eosinophils # (Auto) 0.01 0.00-0.70 K/uL Basophils # (Auto) 0.04 0.00-0.20 K/uL Absolute Immature Granulocyte (auto 0.11 0-1 K/uL Nucleated Red Blood Cells 0.0 0.0-0.19 % White Cell Morphology Comment See comments Prothrombin Time 11.8 H 9.6-11.6 SEC Prothromb Time International Ratio 1.06 0.85-1.15 Activated Partial Thromboplast Time 33.3 26.3-35.5 SEC Sodium Level 138 136-145 mmol/L Potassium Level 3.6 3.5-5.1 mmol/L Chloride Level 102 101-111 mmol/L Carbon Dioxide Level 24 21-32 mmol/L Blood Urea Nitrogen 13 7-18 mg/dL Creatinine 1.3 0.5-1.3 mg/dL Glomerular Filtration Rate Calc 76 >90 mL/min Random Glucose 106 H 70-105 mg/dL Total Calcium 9.6 8.5-10.1 mg/dL Troponin I High Sensitivity < 4 L 4-75 ng/L Procalcitonin < 0.05 L 0.05-0.5 ng/mL Current Medications Medications (Trade) Dose Ordered Sig/Rocky Route PRN Reason Start Time Stop Time Status Last Admin Dose Admin Acetaminophen (TYLenol 650MG ELIXIR) 650 mg ONCE PRN PO TEMPERATURE GREATER THAN 101.5 07/22/24 15:30 08/21/24 15:29 07/22/24 15:53 650 MG DIAGNOSTICS / RADIOLOGY: [ ] ASSESSMENT: Right perirectal abscess POA Acute Leukocytosis POA SIRS with organ dysfunction POA History of germ cell tumor and chemotherapy POA History of right orchiectomy POA History of perirectal abscess with I and D POA Hyperlipidemia POA Obesity POA Anxiety disorder POA PLAN: We will admit patient in medical surgical floor We we will start on regular diet We will continue vancomycin IV We will continue NS at 75 mL/hour x2 bags We will start on Famotidine 20 mg p.o. bid for GI prophylaxis We will replace electrolytes as needed per protocol We will add prn medication for fever,pain,cough ,nausea and vomiting We will seek general surgery consultation We will seek Infectious Disease consultation We will reconcile home meds once medlist available We will request labs in am We will obtain urinalysis Further orders to follow depending on above results Case discussed with attending physician and came up with above treatment and plan of care. ADVANCED CARE PLANNING 1. Which of the following were discussed? Hospice Care - No Therapeutic options - Yes Advance Directives - No Other discussions - 2. Discussed with who? Patient and mother Ping Camacho 3. Voluntary nature of this service was explained to the patient? Yes 4. Amount of time spent - 5. Reviewed by Physician? (if this service was performed by NPP) Yes Patient seen and examined by me. Agree with note by LITIGATION ATTORNEY SEE ADDITIONAL ORDERS PER CHART DISCUSSED WITH NURSING STAFF MIGUEL FISCHERP Jul 22, 2024 22:11
[2024-07-22] MEDS ORDERED: VANCOMYCIN PROTOCOL PER PHARMACY IV SCH (22:30)
[2024-07-22] MEDS: traMADol HCL 50 MG TABLET PO PRN (22:47)
[2024-07-22] MEDS: 0.9%NACL 1000ML 1,000 ML IV SCH (22:47)
[2024-07-22 23:05] VITALS: O2SAT 98
[2024-07-22 23:30] VITALS: BP 113/67; PULSE 131; RESP 19; TEMP 99.6
[2024-07-23] VITALS (7 sets, daily range): BP systolic 100–110; BP diastolic 61–71; PULSE 89–129; RESP 16–20; TEMP 98–99.5; O2SAT 99
[2024-07-23 00:50] LABS: APPEARANCE,URINE CLEAR (CLEAR); BILIRUBIN,URINE NEGATIVE (NEGATIVE); COLOR,URINE LIGHT-YELLOW (YELLOW); GLUCOSE, URINE (UA) NEGATIVE (NEGATIVE); KETONES,URINE 10 mg/dL (NEGATIVE); LEUKOCYTE ESTERASE ,URINE NEGATIVE Leu/uL (NEGATIVE); NITRATE,URINE NEGATIVE (NEGATIVE); OCCULT BLOOD,URINE NEGATIVE (NEGATIVE); PH,URINE 6.5 (5.0-8.0); PROTEIN,URINE NEGATIVE (NEGATIVE)
[2024-07-23 00:52] LABS: ADD UA MICROSCOPIC YES
[2024-07-23 00:54] LABS: BACTERIA,URINE RARE /HPF (None Seen); MUCUS,URINE RARE LPF (None Seen); WBC,URINE 0-1 /HPF (0-1)
[2024-07-23] MEDS: VANCOMYCIN 1.25 GM/250 ML BAG 250 ML IV SCH (06:14)
[2024-07-23] MEDS ORDERED: FAMOTIDINE 20MG TAB PO SCH (09:00)
--- NOTE | 2024-07-23 09:00 | NUR ---
DISCUSSED PLAN OF CARE, PAIN MANAGEMENT, FALL PREVENTION, ANTIBIOTIC THERAPY AND DIET RESTRICTIONS. PATIENT VERBALIZED UNDERSTANDING.
[2024-07-23] MEDS ORDERED: levoFLOXacin 750 MG/D5W 150ML BAG IV SCH ×2 (09:30→13:00)
[2024-07-23] MEDS ORDERED: acetaMINOPHEN 650 MG/20.3 ML UDCUP PO PRN (09:30)
[2024-07-23] MEDS ORDERED: ondanSETRON 4MG INJ IV PRN (09:30)
[2024-07-23 09:52] LABS: HEMATOCRIT 39.8 % (42-54); MEAN CORPUSCULAR HEMOGLOBIN 28.8 pg (27.0-33.0); MEAN CORPUSCULAR HGB CONC 33.7 g/dL (32.0-36.0); MEAN CORPUSCULAR VOLUME 85.6 fL (79-99); RED BLOOD CELL COUNT(AUTO) 4.65 MIL/uL (4.50-6.20); RED CELL DISTRIBUTION WIDTH 13.4 % (11.0-15.5); WHITE BLOOD COUNT (AUTO) 16.2 K/uL (4.8-10.8)
[2024-07-23 10:05] LABS: CREATININE 1.1 mg/dL (0.5-1.3); POTASSIUM 3.6 mmol/L (3.5-5.1)
[2024-07-23 10:07] LABS: BILIRUBIN,TOTAL 1.6 mg/dL (0.2-1.0); TOTAL PROTEIN, SERUM 7.2 g/dL (6.0-8.3)
[2024-07-23] MEDS: 0.9%NACL 1000ML 1,000 ML IV SCH (10:44)
[2024-07-23] MEDS: metRONIDazole 500MG/100ML BAG IV SCH (10:44)
--- NOTE | 2024-07-23 11:32 | NUR ---
DCP Pt awake, alert, oriented x3 lives with Ricardo Camacho [phone]. Pt previously used a cane and verbalized was independent. Anticipates discharge is for home. Addendum: 07/23/24 at 1135 by JT ALLEN RN CM Amended: Links added.
--- NOTE | 2024-07-23 12:44 | PN ---
[facility] PROGRESS NOTE Date of Service: Jul 23, 2024 Time of Service: 12:41 SUBJECTIVE: 07/23 patient is seen and examined at bedside, case discussed with the RN, no acute events overnight, patient getting IV antibiotics during my visit, hemodynamically stable, afebrile, saturating normal on room air. Mildly tachycardic with a heart rate of 118, patient denies dizziness, no headache, no chest pain, shortness shortness a breath, no palpitation, no nausea, no vomiting, no abdominal pain, he is getting good pain control with current medical management. CT abdomen pelvis reviewed, fluid collection right perirectal region. Surgical consultation requested, follow input and recommendation. REVIEW OF SYSTEMS CONSTITUTIONAL: Denies fevers, chills, or night sweats. No unintentional weight loss reported. NEUROLOGICAL: Denies headache, amaurosis fugax, motor weakness, sensory deficit, vertigo/spinning sensation, gait abnormalities, or tremors. ENT: No hearing loss, otalgia, otorrhea, rhinitis, rhinorrhea, hoarseness, or sore throat. CARDIOVASCULAR: Denies any exertional angina, dyspnea on exertion, orthopnea, paroxysmal nocturnal dyspnea, palpitations, life-threatening arrhythmias, claudication. PULMONARY: Denies any shortness of breath, cough, phlegm/sputum, hemoptysis, pleuritic chest pain. SLEEP: Denies morning headaches, daytime somnolence or napping. Denies difficulty falling asleep, staying asleep, waking from sleep. Denies knowledge of snoring. GASTROINTESTINAL: Denies any type of dysphagia to either liquids or solids. Denies nausea, vomiting, pyrosis, early satiety, abdominal pain, diarrhea, constipation, or changes in stool consistency or caliber. Denies coffee-ground emesis, hematemesis, hematochezia, or melanotic stools. GENITOURINARY: Right perirectal pain Denies frequency, urgency, nocturia, hematuria or incontinence (Storage/Irritative symptoms.) Low urinary stream, straining to void, urinary intermittency or hesitancy, splitting of the voiding stream, terminal dribbling. ENDOCRINOLOGIC: Denies polyuria, polydipsia, polyphagia or heat/cold intolerances. HEMATOLOGIC: Denies thrombophilia/previous clots, or coagulopathy/bleeding disorders. ONCOLOGIC: Denies personal history of malignancy. DERMATOLOGIC: Denies rashes or pruritus. PSYCHIATRIC: Denies any suicidal or homicidal ideation. Denies hallucinations. PHYSICAL EXAM GENERAL APPEARANCE: The patient is awake, alert, and oriented, in no acute cardiopulmonary distress. NEUROLOGICAL: Cranial nerves II-XII grossly intact. Motor is 5/5 in bilateral upper and lower extremities proximal to distal. No sensory deficits. HEENT: Face is symmetric. Pupils are equal and reactive. Extraocular movements are intact. NECK: Supple. No JVD. No thyromegaly. No submental, submandibular, pre- /postauricular, occipital or supraclavicular lymphadenopathy. CHEST: Normal chest expansion. No Telemetry. LUNGS: Absence of any rales, rhonchi or any wheezing. CARDIOVASCULAR: Regular. S1 and S2 normal. No appreciable rubs, murmurs or gallops. ABDOMEN: Soft, nontender, and nondistended. There is no rebound, voluntary guarding, or rigidity. : Deferred. No Butler. EXTREMITIES: Non-edematous and not cyanotic. No clubbing. Good capillary refill. SKIN: No skin breakdown. Vital Signs (last 8hr) Date Time Temp Pulse Resp B/P (MAP) Pulse Ox O2 Delivery O2 Flow Rate FiO2 07/23/24 12:35 99.1 119 16 106/71 97 07/23/24 08:26 99.0 110 16 101/62 97 LABS: Laboratory: Test 07/23/24 09:40 07/23/24 00:20 07/22/24 16:00 07/22/24 14:30 Range/Units White Blood Count 16.2 H 4.8-10.8 K/uL Red Blood Count 4.65 4.50-6.20 MIL/uL Hemoglobin 13.4 L 14.0-18.0 g/dL Hematocrit 39.8 L 42-54 % Mean Corpuscular Volume 85.6 79-99 fL Mean Corpuscular Hemoglobin 28.8 27.0-33.0 pg Mean Corpuscular Hemoglobin Concent 33.7 32.0-36.0 g/dL Red Cell Distribution Width 13.4 11.0-15.5 % Platelet Count 252 130-400 K/uL Mean Platelet Volume 8.9 7.5-10.5 fL Nucleated Red Blood Cells 0.0 0.0-0.19 % Sodium Level 140 136-145 mmol/L Potassium Level 3.6 3.5-5.1 mmol/L Chloride Level 106 101-111 mmol/L Carbon Dioxide Level 26 21-32 mmol/L Blood Urea Nitrogen 10 7-18 mg/dL Creatinine 1.1 0.5-1.3 mg/dL Glomerular Filtration Rate Calc 93 >90 mL/min Random Glucose 89 70-105 mg/dL Total Calcium 8.8 8.5-10.1 mg/dL Magnesium Level 2.00 1.80-2.40 mg/dL Total Bilirubin 1.6 H 0.2-1.0 mg/dL Aspartate Amino Transf (AST/SGOT) 34 10-37 U/L Alanine Aminotransferase (ALT/SGPT) 27 12-78 U/L Alkaline Phosphatase 101 50-136 U/L Total Protein 7.2 6.0-8.3 g/dL Albumin 3.0 L 3.5-5.0 g/dL Urine Color LIGHT-YELLOW YELLOW Urine Appearance CLEAR CLEAR Urine pH 6.5 5.0-8.0 Urine Specific [place] 1.036 H 1.001-1.031 Urine Protein NEGATIVE NEGATIVE mg/dL Urine Glucose (UA) NEGATIVE NEGATIVE mg/dL Urine Ketones 10 H NEGATIVE mg/dL Urine Occult Blood NEGATIVE NEGATIVE Urine Nitrate NEGATIVE NEGATIVE Urine Bilirubin NEGATIVE NEGATIVE mg/dL Urine Urobilinogen 2.0 H 0.2-1.0 mg/dL Urine Leukocyte Esterase NEGATIVE NEGATIVE Fitz/uL Urine RBC 2-5 H 0-1 /HPF Urine WBC 0-1 0-1 /HPF Urine Bacteria RARE None Seen /HPF Lactic Acid Level 1.1 0.8-2.5 mmol/L Total Creatine Kinase 219 # 21-232 U/L Immature Granulocyte % (Auto) 0.6 0-1 % Neutrophils (%) (Auto) 89.5 H 40.0-77.0 % Lymphocytes (%) (Auto) 4.8 L 21.0-51.0 % Monocytes (%) (Auto) 4.8 3.0-13.0 % Eosinophils (%) (Auto) 0.1 0.0-8.0 % Basophils (%) (Auto) 0.2 0.0-5.0 % Neutrophils # (Auto) 16.0 H 1.8-7.7 K/uL Lymphocytes # (Auto) 0.9 L 1.0-4.8 K/uL Monocytes # (Auto) 0.9 0.1-1.0 K/uL Eosinophils # (Auto) 0.01 0.00-0.70 K/uL Basophils # (Auto) 0.04 0.00-0.20 K/uL Absolute Immature Granulocyte (auto 0.11 0-1 K/uL White Cell Morphology Comment See comments Prothrombin Time 11.8 H 9.6-11.6 SEC Prothromb Time International Ratio 1.06 0.85-1.15 Activated Partial Thromboplast Time 33.3 26.3-35.5 SEC Troponin I High Sensitivity < 4 L 4-75 ng/L Procalcitonin < 0.05 L 0.05-0.5 ng/mL Current Medications Medications (Trade) Dose Ordered Sig/Rocky Route PRN Reason Start Time Stop Time Status Last Admin Dose Admin Acetaminophen (TYLenol 325MG TAB) 650 mg Q4H PRN PO MILD PAIN (1-3) 07/22/24 22:00 07/23/24 09:29 DC Acetaminophen (TYLenol 325MG TAB) 650 mg Q4H PRN PO MILD PAIN (1-3) 07/23/24 09:30 08/22/24 09:29 Acetaminophen (TYLenol 325MG TAB) 650 mg Q6H PRN PO TEMPERATURE GREATER THAN 101.5 07/22/24 22:00 07/23/24 09:29 DC Acetaminophen (TYLenol 325MG TAB) 650 mg Q6H PRN PO TEMPERATURE GREATER THAN 101.5 07/23/24 09:30 08/22/24 09:29 Acetaminophen (TYLenol 650MG ELIXIR) 650 mg ONCE PRN PO TEMPERATURE GREATER THAN 101.5 07/22/24 15:30 07/23/24 09:29 DC 07/22/24 15:53 650 MG Acetaminophen (TYLenol 650MG ELIXIR) 650 mg ONCE PRN PO TEMPERATURE GREATER THAN 101.5 07/23/24 09:30 08/22/24 09:29 Famotidine (Pepcid 20mg Tab) 20 mg BID PO 07/23/24 09:00 07/23/24 09:29 DC Famotidine (Pepcid 20mg Tab) 20 mg BID PO 07/23/24 21:00 08/22/24 20:59 Ketorolac Tromethamine (toRADol) 15 mg Q6H PRN IM MODERATE PAIN (4-6) 07/23/24 09:30 07/28/24 09:29 Levofloxacin/ Dextrose 150 ml @ 100 mls/hr Q24H IV 07/23/24 13:00 08/02/24 12:59 Levofloxacin/ Dextrose (LEvaquIN 750 MG/ D5W 150 ML) 750 mg Q24H IV 07/23/24 09:30 07/23/24 10:46 DC Levofloxacin/ Dextrose (LEvaquIN 750 MG/ D5W 150 ML) 750 mg Q24H IV 07/23/24 13:00 07/23/24 10:56 DC Metronidazole/ Sodium Chloride (flaGYL) 500 mg Q8H IV 07/23/24 11:00 08/02/24 10:59 07/23/24 10:44 500 MG Ondansetron HCl (zoFRAN 4MG INJ) 4 mg Q6H PRN IV NAUSEA/VOMITING 07/22/24 22:00 07/23/24 09:29 DC Ondansetron HCl (zoFRAN 4MG INJ) 4 mg Q6H PRN IV NAUSEA/VOMITING 07/23/24 09:30 08/22/24 09:29 Sodium Chloride 1,000 ml @ 75 mls/hr [id number] IV 07/22/24 22:30 07/23/24 09:30 DC 07/22/24 22:47 75 MLS/HR Sodium Chloride 1,000 ml @ 75 mls/hr [id number] IV 07/23/24 10:00 08/22/24 09:59 07/23/24 10:44 75 MLS/HR Tramadol HCl (UltRAM) 50 mg Q6H PRN PO MODERATE PAIN (4-6) 07/22/24 22:30 07/23/24 09:24 DC 07/22/24 22:47 50 MG Vancomycin HCl 250 ml @ 125 mls/hr Q12H IV 07/23/24 06:00 07/23/24 09:24 DC 07/23/24 06:14 125 MLS/HR Vancomycin HCl (Vancomycin Protocol) 1 each AD IV 07/22/24 22:30 07/23/24 09:24 DC DIAGNOSTICS / RADIOLOGY: [ ] ASSESSMENT: Right perirectal abscess POA Acute Leukocytosis POA SIRS with organ dysfunction POA History of germ cell tumor and chemotherapy POA History of right orchiectomy POA History of perirectal abscess with I and D POA Hyperlipidemia POA Obesity POA Anxiety disorder POA PLAN: Remains admitted to medical floor Continue on regular diet Continue broad-spectrum IV antibiotics. Surgical consultation requested, follow input and recommendation. Infectious disease consultation requested, follow input and recommendation. Antibiotics switched to Levaquin and Flagyl IV Continue Toradol 50 mg IV every 6 hours as needed for pain control with the adjustment as needed Follow a.m. labs Further orders to follow depending on above results Case discussed with patient, all questions answered, agreed and understood the information provided. MARIA FERNANDA HOLGUIN MD Jul 23, 2024 12:44
[2024-07-23] MEDS: levoFLOXacin 750 MG/D5W 150 ML 150 ML IV SCH (12:53)
[2024-07-23] MEDS: ketOROlac 15MG/ML VIAL (15MG/ML) IM PRN (13:04)
--- NOTE | 2024-07-23 13:27 | CONS ---
INITIAL CONSULTATION NOTE REASON FOR CONSULTATION: Leukocytosis. HISTORY OF PRESENT ILLNESS: This is a 29-year-old gentleman with history of right testicular germ cell tumor, completed chemotherapy about 2 years ago under care of Dr. Holland. He has been doing well. He had a followup visit with Dr. Holland according to the patient and the patient's mother about 2 months ago. He has been doing well. Two to three days prior he started noticing a sore on his buttock and then it increased in size to a golf ball size, spontaneous drainage noted. The patient had no fever though. The patient comes to the hospital and got admitted. He has signs of perirectal or perianal abscess with spontaneous drainage. Blood test, CBC showed WBC of 17.9, hemoglobin 16.2, platelet count 300,000. Repeat CBC, WBC 16.2, hemoglobin 13.4, platelet 252,000. Hematology consultation has been requested. CBC differential shows profoundly neutrophilia with absolute neutrophil count was 16.0. The patient denies having any fever. He has no history of alcohol use. No history of tobacco use. He stays mostly at home. The patient's history obtained from himself, chart review and the patient's mother at the bedside. REVIEW OF SYSTEMS: GENERAL: Denies any weakness, tiredness or fatigue. NECK: Denies any neck pain or neck stiffness. RESPIRATORY: Denies any cough or sputum, hemoptysis. CARDIOVASCULAR: Denies any chest pain, palpitation, orthopnea. GASTROINTESTINAL: Denies nausea, vomiting, abdominal pain, diarrhea, constipation, hematemesis, melena. GENITOURINARY: Denies dysuria, hematuria, flank pain. EXTREMITIES: Denies any weakness of the arms or legs. PHYSICAL EXAMINATION: GENERAL: This is a 29-year-old gentleman, not in any distress. VITAL SIGNS: Temperature 99.1, pulse 119, respirations 16, blood pressure 106/71. HEENT: Sclerae are anicteric. No paleness noted. NECK: Supple, no lymphadenopathy. LUNGS: Good air entry bilaterally. HEART: S1, S2 audible. No added sounds. ABDOMEN: Soft, nontender. Bowel sounds are present. PERIANAL EXAMINATION: He is noted to have about 1 cm swelling a boil in his right gluteal region. Signs of serosanguineous discharge noted. extremities: No edema, no signs of DVTs. LABORATORY DATA: Reviewed as above. IMAGING STUDIES: CT scan abdomen and pelvis with contrast 07/22/2024, 8.8 x 2.3 cm air fluid collection seen in the right perirectal region rectal medial gluteal fold suggesting abscess. A small amount of air is seen, which may be related to the open drainage versus gas forming infection such as necrotizing infection, correlate clinically. A 3.3 cm cystic structure seen in the right pelvis, incompletely characterized. ASSESSMENT AND PLAN: * Right perianal/perirectal abscess, spontaneous with leukocytosis, profoundly neutrophilia. There are no clear signs of source of infection at this time. Leukocytosis profoundly neutrophilia is reactive to his underlying infection. Monitor CBC closely. He is having serosanguineous discharge abscess with spontaneous drainage but he also has lesion, which is about a centimeter in the right perianal/right gluteal region, which needs to be looked at . I will suggest to get a surgical consultation for further evaluation. * Leukocytosis as stated above, likely reactive in nature from underlying infection. Monitoring recommended at this time. * History of right testicular cancer, last treatment about 2 years ago, following with Dr. Holland in outpatient clinic, last clinic visit was about 2 months ago. * Continue all supportive care. Dr. Holland will be available from tomorrow. TID: [id number] RECEIPT: [id number]
[2024-07-23] MEDS: FAMOTIDINE 20MG TAB PO SCH (20:27)
--- NOTE | 2024-07-23 22:52 | CONS ---
GENERAL SURGERY CONSULTATION NOTE Date/Time Patient Seen: July 23, 2024 Reason for Consultation: Right perirectal abscess History of Present Illness: 29-year-old male presents with a 2-3 day history of a right perirectal abscess. He has had some fevers and chills. He presented to the ER and had a workup which included a CT scan of the abdomen and pelvis which showed a 8.8 x 2.3 cm right perirectal abscess. He was admitted for antibiotics. His main complaints are pain in right perirectal perineum region PAST MEDICAL HISTORY: mixed germ-cell tumor status post chemotherapy , perirectal abscess anxiety disorder, obesity and hyperlipidemia PAST SURGICAL HISTORY: [ Right radical orchiectomy, Port-A-Cath placement and I and D ] PAST SOCIAL HISTORY: [Patient lives with mother. Patient denies alcohol tobacco and recreational drug use ] FAMILY HISTORY: [Noncontributory ] Coded Allergies: Penicillins (Verified Allergy, Mild, Rash, 03/19/23) Non-anaphylactic reaction. Body rash. Current Medications Medications (Trade) Dose Ordered Sig/Rocky Route Start Time Stop Time Status Last Admin Dose Admin Famotidine (Pepcid 20mg Tab) 20 mg BID PO 07/23/24 09:00 07/23/24 09:29 DC Famotidine (Pepcid 20mg Tab) 20 mg BID PO 07/23/24 21:00 08/22/24 20:59 Levofloxacin/ Dextrose 150 ml @ 100 mls/hr Q24H IV 07/23/24 13:00 08/02/24 12:59 07/23/24 12:53 100 MLS/HR Levofloxacin/ Dextrose (LEvaquIN 750 MG/ D5W 150 ML) 750 mg Q24H IV 07/23/24 09:30 07/23/24 10:46 DC Levofloxacin/ Dextrose (LEvaquIN 750 MG/ D5W 150 ML) 750 mg Q24H IV 07/23/24 13:00 07/23/24 10:56 DC Metronidazole/ Sodium Chloride (flaGYL) 500 mg Q8H IV 07/23/24 11:00 08/02/24 10:59 07/23/24 19:03 500 MG Sodium Chloride 1,000 ml @ 75 mls/hr [id number] IV 07/22/24 22:30 07/23/24 09:30 DC 07/22/24 22:47 75 MLS/HR Sodium Chloride 1,000 ml @ 75 mls/hr [id number] IV 07/23/24 10:00 08/22/24 09:59 07/23/24 10:44 75 MLS/HR Vancomycin HCl 250 ml @ 125 mls/hr Q12H IV 07/23/24 06:00 07/23/24 09:24 DC 07/23/24 06:14 125 MLS/HR Vancomycin HCl (Vancomycin Protocol) 1 each AD IV 07/22/24 22:30 07/23/24 09:24 DC Review of Systems: CONST: [Positive for fevers and chills] EYES: [No recent vision problems.] ENT: [No congestion, ear pain, or sore throat.] C/V: [No chest pain, palpitations, or edema.] RESP: [No cough, congestion, wheezing or shortness of breath.] GI: [No abdominal pain, nausea, vomiting, constipation, or diarrhea.] : [No incontinence or dysuria.] SKIN: [Abscess NEURO: [No headache, focal numbness or weakness, dizziness, or seizures.] PSYCH: [No depression or anxiety.] HEME: [No abnormal bruising or bleeding.] LYMPH: [No swollen glands.] Physical Examination: GENERAL: [No acute distress.] HEAD: [Normal with no signs of head trauma.] EYES: [PERRLA, EOMI, conjunctiva and sclera normal.] ENT: [Hearing grossly intact, normal oropharynx.] NECK: [Supple without JVD. There is no tenderness, lymphadenopathy, or masses. No thyromegaly. Normal carotid upstrokes without bruits.] LUNGS: [Clear breath sounds bilaterally. There are right basilar rales one third of the way up the chest. No wheezes, or rhonchi.] HEART: [Normal rate and rhythm. Normal S1 and S2 without mumurs, gallop or rub.] VASC: [Peripheral pulses +2 bilaterally.] ABD: [Bowel sounds normal, soft, nontender, no masses, no organomegaly. No audible bruits.] : I can see an area of fluctuation and right. Rectal region it is tracking up towards the perineum with some small amount of spontaneous drainage. LYMPH: [No lymphadenopathy noted.] EXT: [No clubbing, cyanosis or edema.] SKIN: [No rashes or lesions noted.] NEURO: [Awake, alert, and oriented x3. No focal sensory or strength deficits noted.] Vital Signs (last 8hr) Date Time Temp Pulse Resp B/P (MAP) Pulse Ox O2 Delivery O2 Flow Rate FiO2 07/23/24 20:00 98.1 96 20 100/64 99 Room Air 07/23/24 16:00 98.1 89 20 102/63 99 Laboratory: [ ] Hematology Labs: Test 07/23/24 09:40 07/22/24 14:30 Range/Units White Blood Count 16.2 H 4.8-10.8 K/uL Red Blood Count 4.65 4.50-6.20 MIL/uL Hemoglobin 13.4 L 14.0-18.0 g/dL Hematocrit 39.8 L 42-54 % Mean Corpuscular Volume 85.6 79-99 fL Mean Corpuscular Hemoglobin 28.8 27.0-33.0 pg Mean Corpuscular Hemoglobin Concent 33.7 32.0-36.0 g/dL Red Cell Distribution Width 13.4 11.0-15.5 % Platelet Count 252 130-400 K/uL Mean Platelet Volume 8.9 7.5-10.5 fL Nucleated Red Blood Cells 0.0 0.0-0.19 % Immature Granulocyte % (Auto) 0.6 0-1 % Neutrophils (%) (Auto) 89.5 H 40.0-77.0 % Lymphocytes (%) (Auto) 4.8 L 21.0-51.0 % Monocytes (%) (Auto) 4.8 3.0-13.0 % Eosinophils (%) (Auto) 0.1 0.0-8.0 % Basophils (%) (Auto) 0.2 0.0-5.0 % Neutrophils # (Auto) 16.0 H 1.8-7.7 K/uL Lymphocytes # (Auto) 0.9 L 1.0-4.8 K/uL Monocytes # (Auto) 0.9 0.1-1.0 K/uL Eosinophils # (Auto) 0.01 0.00-0.70 K/uL Basophils # (Auto) 0.04 0.00-0.20 K/uL Absolute Immature Granulocyte (auto 0.11 0-1 K/uL White Cell Morphology Comment See comments Chemistry Labs: Test 07/23/24 09:40 07/22/24 16:00 07/22/24 14:30 Range/Units Sodium Level 140 136-145 mmol/L Potassium Level 3.6 3.5-5.1 mmol/L Chloride Level 106 101-111 mmol/L Carbon Dioxide Level 26 21-32 mmol/L Blood Urea Nitrogen 10 7-18 mg/dL Creatinine 1.1 0.5-1.3 mg/dL Glomerular Filtration Rate Calc 93 >90 mL/min Random Glucose 89 70-105 mg/dL Total Calcium 8.8 8.5-10.1 mg/dL Magnesium Level 2.00 1.80-2.40 mg/dL Total Bilirubin 1.6 H 0.2-1.0 mg/dL Aspartate Amino Transf (AST/SGOT) 34 10-37 U/L Alanine Aminotransferase (ALT/SGPT) 27 12-78 U/L Alkaline Phosphatase 101 50-136 U/L Total Protein 7.2 6.0-8.3 g/dL Albumin 3.0 L 3.5-5.0 g/dL Lactic Acid Level 1.1 0.8-2.5 mmol/L Total Creatine Kinase 219 # 21-232 U/L Troponin I High Sensitivity < 4 L 4-75 ng/L Procalcitonin < 0.05 L 0.05-0.5 ng/mL Coagulation Labs: Test 07/22/24 14:30 Range/Units Prothrombin Time 11.8 H 9.6-11.6 SEC Prothromb Time International Ratio 1.06 0.85-1.15 Activated Partial Thromboplast Time 33.3 26.3-35.5 SEC Diagnostics / Radiology: CT scan of the abdomen and pelvis showed 8.8 x 2.3 cm right perirectal abscess Assessment: 29-year-old male with a right perirectal abscess Plan: IV antibiotics We will take to the operating room tomorrow for a incision and drainage of the right perirectal abscess CARLOS COYLE MD Jul 23, 2024 22:52
[2024-07-24] VITALS (7 sets, daily range): BP systolic 104–114; BP diastolic 51–72; PULSE 93–109; RESP 16–20; TEMP 97.8–99; O2SAT 99
[2024-07-24 06:33] LABS: HEMATOCRIT 38.4 % (42-54); MEAN CORPUSCULAR HEMOGLOBIN 29.5 pg (27.0-33.0); MEAN CORPUSCULAR HGB CONC 34.9 g/dL (32.0-36.0); MEAN CORPUSCULAR VOLUME 84.6 fL (79-99); RED BLOOD CELL COUNT(AUTO) 4.54 MIL/uL (4.50-6.20); RED CELL DISTRIBUTION WIDTH 13.2 % (11.0-15.5); WHITE BLOOD COUNT (AUTO) 14.6 K/uL (4.8-10.8)
[2024-07-24] MEDS: 0.9%NACL 1000ML 1,000 ML IV SCH (06:37)
[2024-07-24 06:54] LABS: ALBUMIN 2.8 g/dL (3.5-5.0); MAGNESIUM 2.1 mg/dL (1.80-2.40); POTASSIUM 3.7 mmol/L (3.5-5.1); TOTAL PROTEIN, SERUM 7.4 g/dL (6.0-8.3)
--- NOTE | 2024-07-24 11:10 | PN ---
SUBJECTIVE: The patient is well known to me, has a history of testicular cancer in remission, on remote chemotherapy. He had minimal ____. OBJECTIVE: VITAL SIGNS: Blood pressure 109/51, pulse 103, respirations 20. HEENT: Benign. CHEST: Clear. ABDOMEN: Soft. EXTREMITIES: Show edema. LABORATORY DATA: White count is high. PLAN: Testicular cancer in remission. Perianal abscess. Agree with surgical drainage. Broad-spectrum antibiotics. He has no evidence of cancer. TID: [id number] RECEIPT: [id number]
--- NOTE | 2024-07-24 13:35 | PN ---
[facility] PROGRESS NOTE Date of Service: Jul 24, 2024 Time of Service: 13:31 SUBJECTIVE: 07/23 patient is seen and examined at bedside, case discussed with the RN, no acute events overnight, patient getting IV antibiotics during my visit, hemodynamically stable, afebrile, saturating normal on room air. Mildly tachycardic with a heart rate of 118, patient denies dizziness, no headache, no chest pain, shortness shortness a breath, no palpitation, no nausea, no vomiting, no abdominal pain, he is getting good pain control with current medical management. CT abdomen pelvis reviewed, fluid collection right perirectal region. Surgical consultation requested, follow input and recommendation. 07/24 Pt seen at bedside, no acute events overnight. Pending I&D with general surgery, will follow up post-procedure. Continue IV antibiotics REVIEW OF SYSTEMS 12 point ROS negative unless noted in HPI PHYSICAL EXAM GENERAL APPEARANCE: The patient is awake, alert, and oriented, in no acute cardiopulmonary distress. NEUROLOGICAL: Cranial nerves II-XII grossly intact. Motor is 5/5 in bilateral upper and lower extremities proximal to distal. No sensory deficits. HEENT: Face is symmetric. Pupils are equal and reactive. Extraocular movements are intact. NECK: Supple. No JVD. No thyromegaly. No submental, submandibular, pre- /postauricular, occipital or supraclavicular lymphadenopathy. CHEST: Normal chest expansion. No Telemetry. LUNGS: Absence of any rales, rhonchi or any wheezing. CARDIOVASCULAR: Regular. S1 and S2 normal. No appreciable rubs, murmurs or gallops. ABDOMEN: Soft, nontender, and nondistended. There is no rebound, voluntary guarding, or rigidity. : Deferred. No Butler. EXTREMITIES: Non-edematous and not cyanotic. No clubbing. Good capillary refill. SKIN: No skin breakdown. Vital Signs (last 8hr) Date Time Temp Pulse Resp B/P (MAP) Pulse Ox O2 Delivery O2 Flow Rate FiO2 07/24/24 11:28 98.4 107 16 109/61 99 07/24/24 08:13 98.4 93 17 107/72 97 LABS: Laboratory: Test 07/24/24 06:22 07/23/24 00:20 07/22/24 16:00 07/22/24 14:30 Range/Units White Blood Count 14.6 H 4.8-10.8 K/uL Red Blood Count 4.54 4.50-6.20 MIL/uL Hemoglobin 13.4 L 14.0-18.0 g/dL Hematocrit 38.4 L 42-54 % Mean Corpuscular Volume 84.6 79-99 fL Mean Corpuscular Hemoglobin 29.5 27.0-33.0 pg Mean Corpuscular Hemoglobin Concent 34.9 32.0-36.0 g/dL Red Cell Distribution Width 13.2 11.0-15.5 % Platelet Count 249 130-400 K/uL Mean Platelet Volume 8.7 7.5-10.5 fL Nucleated Red Blood Cells 0.0 0.0-0.19 % Sodium Level 138 136-145 mmol/L Potassium Level 3.7 3.5-5.1 mmol/L Chloride Level 105 101-111 mmol/L Carbon Dioxide Level 19 L 21-32 mmol/L Blood Urea Nitrogen 11 7-18 mg/dL Creatinine 1.0 0.5-1.3 mg/dL Glomerular Filtration Rate Calc 104 >90 mL/min Random Glucose 76 70-105 mg/dL Total Calcium 9.1 8.5-10.1 mg/dL Magnesium Level 2.10 1.80-2.40 mg/dL Total Bilirubin 1.0 # 0.2-1.0 mg/dL Aspartate Amino Transf (AST/SGOT) 34 10-37 U/L Alanine Aminotransferase (ALT/SGPT) 24 12-78 U/L Alkaline Phosphatase 108 50-136 U/L Total Protein 7.4 6.0-8.3 g/dL Albumin 2.8 L 3.5-5.0 g/dL Urine Color LIGHT-YELLOW YELLOW Urine Appearance CLEAR CLEAR Urine pH 6.5 5.0-8.0 Urine Specific [place] 1.036 H 1.001-1.031 Urine Protein NEGATIVE NEGATIVE mg/dL Urine Glucose (UA) NEGATIVE NEGATIVE mg/dL Urine Ketones 10 H NEGATIVE mg/dL Urine Occult Blood NEGATIVE NEGATIVE Urine Nitrate NEGATIVE NEGATIVE Urine Bilirubin NEGATIVE NEGATIVE mg/dL Urine Urobilinogen 2.0 H 0.2-1.0 mg/dL Urine Leukocyte Esterase NEGATIVE NEGATIVE Fitz/uL Urine RBC 2-5 H 0-1 /HPF Urine WBC 0-1 0-1 /HPF Urine Bacteria RARE None Seen /HPF Lactic Acid Level 1.1 0.8-2.5 mmol/L Total Creatine Kinase 219 # 21-232 U/L Immature Granulocyte % (Auto) 0.6 0-1 % Neutrophils (%) (Auto) 89.5 H 40.0-77.0 % Lymphocytes (%) (Auto) 4.8 L 21.0-51.0 % Monocytes (%) (Auto) 4.8 3.0-13.0 % Eosinophils (%) (Auto) 0.1 0.0-8.0 % Basophils (%) (Auto) 0.2 0.0-5.0 % Neutrophils # (Auto) 16.0 H 1.8-7.7 K/uL Lymphocytes # (Auto) 0.9 L 1.0-4.8 K/uL Monocytes # (Auto) 0.9 0.1-1.0 K/uL Eosinophils # (Auto) 0.01 0.00-0.70 K/uL Basophils # (Auto) 0.04 0.00-0.20 K/uL Absolute Immature Granulocyte (auto 0.11 0-1 K/uL White Cell Morphology Comment See comments Prothrombin Time 11.8 H 9.6-11.6 SEC Prothromb Time International Ratio 1.06 0.85-1.15 Activated Partial Thromboplast Time 33.3 26.3-35.5 SEC Troponin I High Sensitivity < 4 L 4-75 ng/L Procalcitonin < 0.05 L 0.05-0.5 ng/mL Current Medications Medications (Trade) Dose Ordered Sig/Rocky Route PRN Reason Start Time Stop Time Status Last Admin Dose Admin Acetaminophen (TYLenol 325MG TAB) 650 mg Q4H PRN PO MILD PAIN (1-3) 07/22/24 22:00 07/23/24 09:29 DC Acetaminophen (TYLenol 325MG TAB) 650 mg Q4H PRN PO MILD PAIN (1-3) 07/23/24 09:30 08/22/24 09:29 Acetaminophen (TYLenol 325MG TAB) 650 mg Q6H PRN PO TEMPERATURE GREATER THAN 101.5 07/22/24 22:00 07/23/24 09:29 DC Acetaminophen (TYLenol 325MG TAB) 650 mg Q6H PRN PO TEMPERATURE GREATER THAN 101.5 07/23/24 09:30 08/22/24 09:29 Acetaminophen (TYLenol 650MG ELIXIR) 650 mg ONCE PRN PO TEMPERATURE GREATER THAN 101.5 07/22/24 15:30 07/23/24 09:29 DC 07/22/24 15:53 650 MG Acetaminophen (TYLenol 650MG ELIXIR) 650 mg ONCE PRN PO TEMPERATURE GREATER THAN 101.5 07/23/24 09:30 08/22/24 09:29 Famotidine (Pepcid 20mg Tab) 20 mg BID PO 07/23/24 09:00 07/23/24 09:29 DC Famotidine (Pepcid 20mg Tab) 20 mg BID PO 07/23/24 21:00 08/22/24 20:59 Ketorolac Tromethamine (toRADol) 15 mg Q6H PRN IM MODERATE PAIN (4-6) 07/23/24 09:30 07/28/24 09:29 07/23/24 13:04 15 MG Levofloxacin/ Dextrose 150 ml @ 100 mls/hr Q24H IV 07/23/24 13:00 08/02/24 12:59 07/23/24 12:53 100 MLS/HR Levofloxacin/ Dextrose (LEvaquIN 750 MG/ D5W 150 ML) 750 mg Q24H IV 07/23/24 09:30 07/23/24 10:46 DC Levofloxacin/ Dextrose (LEvaquIN 750 MG/ D5W 150 ML) 750 mg Q24H IV 07/23/24 13:00 07/23/24 10:56 DC Metronidazole/ Sodium Chloride (flaGYL) 500 mg Q8H IV 07/23/24 11:00 08/02/24 10:59 07/24/24 03:34 500 MG Ondansetron HCl (zoFRAN 4MG INJ) 4 mg Q6H PRN IV NAUSEA/VOMITING 07/22/24 22:00 07/23/24 09:29 DC Ondansetron HCl (zoFRAN 4MG INJ) 4 mg Q6H PRN IV NAUSEA/VOMITING 07/23/24 09:30 08/22/24 09:29 Sodium Chloride 1,000 ml @ 75 mls/hr [id number] IV 07/22/24 22:30 07/23/24 09:30 DC 07/22/24 22:47 75 MLS/HR Sodium Chloride 1,000 ml @ 75 mls/hr [id number] IV 07/23/24 10:00 07/24/24 06:35 DC 07/23/24 10:44 75 MLS/HR Sodium Chloride 1,000 ml @ 120 mls/hr [id number] IV 07/24/24 07:00 08/23/24 06:59 07/24/24 06:37 120 MLS/HR Tramadol HCl (UltRAM) 50 mg Q6H PRN PO MODERATE PAIN (4-6) 07/22/24 22:30 07/23/24 09:24 DC 07/22/24 22:47 50 MG Vancomycin HCl 250 ml @ 125 mls/hr Q12H IV 07/23/24 06:00 07/23/24 09:24 DC 07/23/24 06:14 125 MLS/HR Vancomycin HCl (Vancomycin Protocol) 1 each AD IV 07/22/24 22:30 07/23/24 09:24 DC DIAGNOSTICS / RADIOLOGY: [ ] ASSESSMENT: Right perirectal abscess POA Acute Leukocytosis POA SIRS with organ dysfunction POA History of germ cell tumor and chemotherapy POA History of right orchiectomy POA History of perirectal abscess with I and D POA Hyperlipidemia POA Obesity POA Anxiety disorder POA PLAN: Remains admitted to medical floor Continue NPO Continue broad-spectrum IV antibiotics. Surgical consultation requested, follow input and recommendation. Infectious disease consultation requested, follow input and recommendation. Continue Levaquin and Flagyl IV Continue Toradol 50 mg IV every 6 hours as needed for pain control with the adjustment as needed Disposition: Pending I&D and post op course DENILSON ELLIOTT MD Jul 24, 2024 13:35
--- NOTE | 2024-07-24 17:16 | PN ---
INFECTIOUS DISEASE PROGRESS NOTE Date of Service: Jul 24, 2024 SUBJECTIVE: This is a 29-year-old male patient with past medical history of previous perirectal abscess with I&D, right tumor testicle, status post orchiectomy who presented to the emergency room for evaluation of right perineal rectal abscess and fever. On admission patient had a WBC of 17.9 and a fever of 100.6. A CT of the abdomen/pelvis showed an 8.8 x 2.3 cm air-fluid collection in the right perirectal region/right medial gluteal fold suggesting abscess. General surgeon was consulted and patient is scheduled for incision and drainage. Patient has been started on levofloxacin and metronidazole IV. Patient was seen and examined at bedside in room 326. Patient is awake, alert and oriented x3. No drainage observed from the abscess on the right perirectal area. No fever reported today, temperature is 99.0. WBC has improved and has trended down to 14.6. We will follow up on the culture results and antibiotics to be adjusted when culture is updated or finalized. On another note observed that patient is co-dependent. Relies on his mother for routine ADL care. Will continue to follow patient's care. REVIEW OF SYSTEMS CONSTITUTIONAL: Fever. HEAD/FACE: No signs of trauma. EENT: Denies eye pain, blurred vision, double vision, or light sensitivity. RESPIRATORY: Denies shortness of breath, cough, wheezing. CARDIOVASCULAR: Denies chest pain, palpitation, syncope GASTROINTESTINAL/ABDOMINAL: Denies abdominal pain, constipation, diarrhea, nausea or vomiting. GENITOURINARY: Denies dysuria or hematuria. MUSCULOSKELETAL: Denies joint pain, tenderness, or trauma. INTEGUMENTARY: Denies rash or itchiness. RECTAL: Perirectal pain. NEUROLOGICAL/PSYCH: Denies anxiety, depression, heat or cold intolerance. PHYSICAL EXAM EYES: Anicteric. Pupils equal and reactive. HENT: No oral thrush seen, moist Oral mucosa. NECK: Supple, no JVD or thyromegaly. LUNGS: Good air entry. No rales, no rhonchi. CARDIOVASCULAR: S1, S2 regular. No murmur heard. ABDOMEN: Soft, non tender, bowel sounds present, no organomegaly. CENTRAL NERVOUS SYSTEM: Awake, alert, oriented x 3. SKIN: No rashes, no swelling. LYMPHATICS: No peripheral lymphadenopathy. MUSCULOSKELETAL: No joint swelling, erythema or tenderness. EXTREMITIES: No cyanosis or clubbing BACK: No deformity, no pressure ulcer. Perirectal abscess. GENITOURINARY: No dysuria or hematuria. Vital Sign (Last 12 Hours) 07/24/24 07/24/24 07/24/24 08:13 11:28 16:26 Temp 98.4 98.4 99.0 Pulse 93 107 109 Resp 17 16 19 B/P (MAP) 107/72 109/61 108/65 Pulse Ox 97 99 99 LABS: Laboratory: Test 07/24/24 06:22 07/23/24 00:20 Range/Units White Blood Count 14.6 H 4.8-10.8 K/uL Red Blood Count 4.54 4.50-6.20 MIL/uL Hemoglobin 13.4 L 14.0-18.0 g/dL Hematocrit 38.4 L 42-54 % Mean Corpuscular Volume 84.6 79-99 fL Mean Corpuscular Hemoglobin 29.5 27.0-33.0 pg Mean Corpuscular Hemoglobin Concent 34.9 32.0-36.0 g/dL Red Cell Distribution Width 13.2 11.0-15.5 % Platelet Count 249 130-400 K/uL Mean Platelet Volume 8.7 7.5-10.5 fL Nucleated Red Blood Cells 0.0 0.0-0.19 % Sodium Level 138 136-145 mmol/L Potassium Level 3.7 3.5-5.1 mmol/L Chloride Level 105 101-111 mmol/L Carbon Dioxide Level 19 L 21-32 mmol/L Blood Urea Nitrogen 11 7-18 mg/dL Creatinine 1.0 0.5-1.3 mg/dL Glomerular Filtration Rate Calc 104 >90 mL/min Random Glucose 76 70-105 mg/dL Total Calcium 9.1 8.5-10.1 mg/dL Magnesium Level 2.10 1.80-2.40 mg/dL Total Bilirubin 1.0 # 0.2-1.0 mg/dL Aspartate Amino Transf (AST/SGOT) 34 10-37 U/L Alanine Aminotransferase (ALT/SGPT) 24 12-78 U/L Alkaline Phosphatase 108 50-136 U/L Total Protein 7.4 6.0-8.3 g/dL Albumin 2.8 L 3.5-5.0 g/dL Urine Color LIGHT-YELLOW YELLOW Urine Appearance CLEAR CLEAR Urine pH 6.5 5.0-8.0 Urine Specific [place] 1.036 H 1.001-1.031 Urine Protein NEGATIVE NEGATIVE mg/dL Urine Glucose (UA) NEGATIVE NEGATIVE mg/dL Urine Ketones 10 H NEGATIVE mg/dL Urine Occult Blood NEGATIVE NEGATIVE Urine Nitrate NEGATIVE NEGATIVE Urine Bilirubin NEGATIVE NEGATIVE mg/dL Urine Urobilinogen 2.0 H 0.2-1.0 mg/dL Urine Leukocyte Esterase NEGATIVE NEGATIVE Fitz/uL Urine RBC 2-5 H 0-1 /HPF Urine WBC 0-1 0-1 /HPF Urine Bacteria RARE None Seen /HPF DIAGNOSTICS / RADIOLOGY: PATIENT: ANABEL TERRELL MR#: [id number] : 1995 SEX: M AGE: 29 LOCATION: [facility] ORDER 17 STATUS: [facility] REPORT#: [id number] SERVICE 16 REASON: PERIRECTAL ABSCESS ORDERING PHYSICIAN: HANY SKY MD PROCEDURE: ABD PEL W - CT ABDOMEN/PELVIS W/CONTRAST CT ABDOMEN/PELVIS W/CONTRAST HISTORY: PERIRECTAL ABSCESS TECHNIQUE: CT ABDOMEN/PELVIS W/CONTRAST Omnipaque contrast was used. Oral contrast was not given. Coronal and sagittal reformats were obtained. CT was performed with one or more of the following dose reduction techniques: Automated exposure control, adjustment of the mA and/or kV according to the patient's size, or use of the iterative reconstruction technique. Comparison: CT dated 06/13/2019 FINDINGS: No pulmonary consolidation or pleural effusion is seen. Unremarkable liver parenchyma. Gallstones are seen. There is no CT evidence of gallbladder wall thickening. The spleen, pancreas, and adrenal glands are within normal limits. No hydronephrosis. The urinary bladder is partially distended. 8.8 x 2.3 cm air-fluid collection seen in the right perirectal region suggesting perirectal abscess. Small amount of air is seen which may may be related to open ulcer versus gas-forming infection such as necrotizing infection. Correlate clinically. 3.3 cm cystic structure seen in the right pelvis, incompletely characterized. No bowel obstruction identified. Appendix is normal in caliber. Visualized aorta is normal in caliber. No acute osseous findings. IMPRESSION: 1. 8.8 x 2.3 cm air-fluid collection seen in the right perirectal region/right medial gluteal fold suggesting abscess. Small amount of air is seen which may may be related to open drainage versus gas-forming infection such as necrotizing infection. Correlate clinically. 2. 3.3 cm cystic structure seen in the right pelvis, incompletely characterized. DICTATED BY: ALESSIO TAYLOR MD DATE: 07/22/241830 ASSESSMENT: Right perirectal abscess. Leukocytosis. Right testicle tumor, status post orchiectomy. Right Port-A-Cath in place. PLAN: Continue levofloxacin. Continue metronidazole IV. Will Follow up on the cultures. Continue pain management. Antibiotics to be adjusted when culture is updated or finalized. General surgeon has evaluated patient and scheduled for an incision and drainage of right perirectal abscess. This case was reviewed and discussed with my supervising physician and the above assessment and plan was formulated and agreed upon. ATTESTATION BY PHYSICIAN I have seen and examined the patient. I reviewed the documentation, medical decision making, and treatment plan as noted by the mid-level provider above. I agree with the findings and plan of care. WIN MURPHY MD, MIRTA L [employer]IVET[employer] MACHINE Jul 24, 2024 17:16
[2024-07-25] VITALS (26 sets, daily range): BP systolic 98–131; BP diastolic 64–85; PULSE 85–121; RESP 14–20; TEMP 97.7–98.5; O2SAT 99
[2024-07-25 05:30] LABS: BASOPHILS # (AUTO) 0.03 K/uL (0.00-0.20); BASOPHILS % (AUTO) 0.2 % (0.0-5.0); EOSINOPHILS # (AUTO) 0.03 K/uL (0.00-0.70); EOSINOPHILS % (AUTO) 0.2 % (0.0-8.0); HEMATOCRIT 37.5 % (42-54); IMMATURE GRANULOCYTE ABSOLUTE 0.09 K/uL (0-1); MEAN CORPUSCULAR HGB CONC 34.4 g/dL (32.0-36.0); MEAN CORPUSCULAR VOLUME 84.3 fL (79-99); MONOCYTES # (AUTO) 0.8 K/uL (0.1-1.0); NEUTROPHILS # (AUTO) 10.4 K/uL (1.8-7.7); NEUTROPHILS % (AUTO) 77.9 % (40.0-77.0); PLATELET COUNT (AUTO) 282 K/uL (130-400); RED BLOOD CELL COUNT(AUTO) 4.45 MIL/uL (4.50-6.20); RED CELL DISTRIBUTION WIDTH 13.1 % (11.0-15.5); WHITE BLOOD COUNT (AUTO) 13.4 K/uL (4.8-10.8)
[2024-07-25 06:28] LABS: CREATININE 1.1 mg/dL (0.5-1.3); MAGNESIUM 1.7 mg/dL (1.80-2.40); PHOSPHORUS 3.4 mg/dL (2.5-4.9); POTASSIUM 3.8 mmol/L (3.5-5.1)
[2024-07-25] MEDS ORDERED: GLYCOPYRROLATE 0.2 MG/ML 5 ML VIAL ONE (07:19)
[2024-07-25] MEDS ORDERED: LIDOCAINE PF 100MG/5ML (2%) SYRINGE 5ML ONE (07:19)
[2024-07-25] MEDS ORDERED: SUCCINYLCHOLINE CHLORIDE 20 MG/ML 10 ML VIAL ONE (07:19)
[2024-07-25] MEDS ORDERED: proPOFol 10 MG/ML 20ML VIAL IV ONE (07:19)
[2024-07-25] MEDS ORDERED: dexaMETHasone SOD PHOSPHATE 10MG/ML 1ML VIAL ONE (07:19)
[2024-07-25] MEDS ORDERED: ondanSETRON 4MG INJ ONE (07:19)
[2024-07-25] MEDS ORDERED: rocuRONium bROMide 10MG/1ML 5ML VL ONE (07:20)
[2024-07-25] MEDS ORDERED: FENTanyl CITRate PF 50 MCG/1 ML 2ML VIAL ONE ×2 (07:20→08:36)
[2024-07-25] MEDS ORDERED: MIDAZOLAM HCL 1 MG/ML 2ML VIAL ONE (07:20)
[2024-07-25] MEDS ORDERED: NEOSTIGMINE METHYLSULFATE 1MG/ML IV ONE (07:20)
[2024-07-25] MEDS ORDERED: BUPIvacaine HCL/EPINEPHrine/PF 0.25% 10ML VIAL IJ ONE (07:46)
--- NOTE | 2024-07-25 07:55 | PN ---
LOCATION: [facility]. SUBJECTIVE: The patient admitted with a perirectal abscess and sepsis. His fever is down. His white count is coming down, followed by Infectious Disease. Surgery is seeing him. REVIEW OF SYSTEMS: Negative. He is not having any pain. PHYSICAL EXAMINATION: GENERAL: Shows a pleasant man. VITAL SIGNS: Blood pressure 105/69, pulse 106, respirations 20. CHEST: Clear. IMPRESSION: Perirectal abscess pending drainage, sepsis, testicular cancer in remission. PLAN: Proceed with drainage per the Surgery team. Continue antibiotics. The patient is stable. TID: [id number] RECEIPT: [id number]
[2024-07-25] MEDS ORDERED: phenylEPHRINE HCL 10 MG/ML 1ML VIAL IV ONE (08:32)
--- NOTE | 2024-07-25 10:17 | OP ---
Operative Note: DATE OF PROCEDURE: 07/25/24 SURGEON: CARLOS COYLE MD MITTEN SEWER: [facility] [place] ANESTHESIA: general ANESTHESIOLOGIST/FIBERGLASS ROVING WINDER: Eduardo Flores CRNA PREOPERATIVE DIAGNOSIS: Right perirectal POSTOPERATIVE DIAGNOSIS: Right Perineum abscess SYNOPSIS: superficial right perineum abscess extending toward scrotum PROCEDURE: Incision and and drainage of right perineum abscess ESTIMATED BLOOD LOSS: 50 ml INDICATIONS: 29 y/o male admitted for right perirectal abscess. He need and I and D. DESCRIPTION OF PROCEDURE: Patient was taken to the operating room and placed on the operating table in supine position. Next general anesthesia was induced and the patient was intubated. He was placed in a lithotomy position. A time-out was called and the patient's identity, procedure, preoperative antibiotics were confirmed. I made a small incision overlying the head of the superficial right perineum abscess. I then cultured the bloody contents is sent those off. Next I irrigated the area. I did cut away a little bit of the devitalized tissue. I noticed that he has some tunneling going up towards the scrotum and I ended up placing three vessel loops through three counter incisions to facilitate drainage. The wound was very oozy. Hemostasis was obtained with the electrocautery as well as placement of fibrillar. I packed the wound with a normal saline moistened mini Kerlix on top and placed fluffs and ABD pads. The patient tolerated the procedure and was taken to the recovery room in stable condition. Sponge, needle and instrument counts were accurate. CARLOS COYLE MD Jul 25, 2024 10:16
[2024-07-25] MEDS: acetaMINOPHEN 325 MG TAB PO PRN (14:28)
--- NOTE | 2024-07-25 16:57 | PN ---
INFECTIOUS DISEASE PROGRESS NOTE Date of Service: Jul 25, 2024 SUBJECTIVE: This is a 29-year-old male patient with past medical history of previous perirectal abscess with I&D, right tumor testicle, status post orchiectomy who presented to the emergency room for evaluation of right perineal rectal abscess and fever. On admission patient had a WBC of 17.9 and a fever of 100.6. A CT of the abdomen/pelvis showed an 8.8 x 2.3 cm air-fluid collection in the right perirectal region/right medial gluteal fold suggesting abscess. General surgeon was consulted and was started on levofloxacin and metronidazole IV. Patient was seen and examined at bedside in room 326. Patient is status post incision and drainage of the right perirectal abscess today. No fever, temperature is 98.4. The WBC continues trending down and is 13.4 this morning. We will follow up on the culture results and antibiotics to be adjusted when culture is updated or finalized. No other issues reported by nursing. Will continue to follow patient's care. PHYSICAL EXAM EYES: Anicteric. Pupils equal and reactive. HENT: No oral thrush seen, moist Oral mucosa. NECK: Supple, no JVD or thyromegaly. LUNGS: Good air entry. No rales, no rhonchi. CARDIOVASCULAR: S1, S2 regular. No murmur heard. ABDOMEN: Soft, non tender, bowel sounds present, no organomegaly. CENTRAL NERVOUS SYSTEM: Awake, alert, oriented x 3. SKIN: No rashes, no swelling. LYMPHATICS: No peripheral lymphadenopathy. MUSCULOSKELETAL: No joint swelling, erythema or tenderness. EXTREMITIES: No cyanosis or clubbing BACK: No deformity, no pressure ulcer. Perirectal abscess. GENITOURINARY: No dysuria or hematuria. Vital Sign (Last 12 Hours) 07/25/24 07/25/24 07/25/24 07/25/24 07:25 08:00 09:32 09:37 Temp 97.9 98.4 97.7 Pulse 95 85 118 117 Resp 17 18 16 17 B/P (MAP) 124/70 114/68 123/77 107/75 Pulse Ox 96 97 99 100 O2 Delivery Room Air Room Air Nonrebreathing Mask Nonrebreathing Mask O2 Flow Rate 10.0 10.0 FiO2 21 07/25/24 07/25/24 07/25/24 07/25/24 09:42 09:47 09:52 09:57 Temp 97.7 Pulse 109 111 101 97 Resp 18 17 16 14 B/P (MAP) 129/78 130/76 129/76 119/76 Pulse Ox 100 99 98 97 O2 Delivery Nonrebreathing Mask Room Air Room Air Room Air O2 Flow Rate 10.0 07/25/24 07/25/24 07/25/24 07/25/24 10:02 10:07 10:12 10:17 Temp 97.9 Pulse 94 102 99 96 Resp 16 15 16 17 B/P (MAP) 128/72 122/75 118/74 120/74 Pulse Ox 95 95 96 95 O2 Delivery Room Air Room Air Room Air Room Air 07/25/24 07/25/24 07/25/24 07/25/24 10:23 10:38 10:53 11:08 Temp 98.4 Pulse 87 94 98 118 Resp 18 B/P (MAP) 118/79 116/77 131/82 129/85 Pulse Ox 96 97 98 98 O2 Delivery Room Air Room Air Room Air Room Air FiO2 21 21 07/25/24 07/25/24 07/25/24 07/25/24 11:23 11:53 12:23 13:23 Pulse 92 104 121 110 B/P (MAP) 119/79 122/80 128/82 122/73 Pulse Ox 96 96 96 94 O2 Delivery Room Air Room Air Room Air Room Air FiO2 21 21 LABS: Laboratory: Test 07/25/24 05:22 07/24/24 06:22 Range/Units White Blood Count 13.4 H 4.8-10.8 K/uL Red Blood Count 4.45 L 4.50-6.20 MIL/uL Hemoglobin 12.9 L 14.0-18.0 g/dL Hematocrit 37.5 L 42-54 % Mean Corpuscular Volume 84.3 79-99 fL Mean Corpuscular Hemoglobin 29.0 27.0-33.0 pg Mean Corpuscular Hemoglobin Concent 34.4 32.0-36.0 g/dL Red Cell Distribution Width 13.1 11.0-15.5 % Platelet Count 282 130-400 K/uL Mean Platelet Volume 8.6 7.5-10.5 fL Immature Granulocyte % (Auto) 0.7 0-1 % Neutrophils (%) (Auto) 77.9 H 40.0-77.0 % Lymphocytes (%) (Auto) 15.0 L 21.0-51.0 % Monocytes (%) (Auto) 6.0 3.0-13.0 % Eosinophils (%) (Auto) 0.2 0.0-8.0 % Basophils (%) (Auto) 0.2 0.0-5.0 % Neutrophils # (Auto) 10.4 H 1.8-7.7 K/uL Lymphocytes # (Auto) 2.0 1.0-4.8 K/uL Monocytes # (Auto) 0.8 0.1-1.0 K/uL Eosinophils # (Auto) 0.03 0.00-0.70 K/uL Basophils # (Auto) 0.03 0.00-0.20 K/uL Absolute Immature Granulocyte (auto 0.09 0-1 K/uL Nucleated Red Blood Cells 0.0 0.0-0.19 % Sodium Level 139 136-145 mmol/L Potassium Level 3.8 3.5-5.1 mmol/L Chloride Level 106 101-111 mmol/L Carbon Dioxide Level 24 21-32 mmol/L Blood Urea Nitrogen 10 7-18 mg/dL Creatinine 1.1 0.5-1.3 mg/dL Glomerular Filtration Rate Calc 93 >90 mL/min Random Glucose 91 70-105 mg/dL Total Calcium 8.7 8.5-10.1 mg/dL Phosphorus Level 3.4 2.5-4.9 mg/dL Magnesium Level 1.70 L 1.80-2.40 mg/dL Total Bilirubin 1.0 # 0.2-1.0 mg/dL Aspartate Amino Transf (AST/SGOT) 34 10-37 U/L Alanine Aminotransferase (ALT/SGPT) 24 12-78 U/L Alkaline Phosphatase 108 50-136 U/L Total Protein 7.4 6.0-8.3 g/dL Albumin 2.8 L 3.5-5.0 g/dL ASSESSMENT: Right perirectal abscess, status post incision and drainage. Leukocytosis. Right testicle tumor, status post orchiectomy. Right Port-A-Cath in place. PLAN: Continue levofloxacin. Continue metronidazole IV. Continue pain management. Will Follow up on the culture results. Antibiotics to be adjusted when culture is updated or finalized. This case was reviewed and discussed with my supervising physician and the above assessment and plan was formulated and agreed upon. ATTESTATION BY PHYSICIAN I have seen and examined the patient. I reviewed the documentation, medical decision making, and treatment plan as noted by the mid-level provider above. I agree with the findings and plan of care. WIN MURPHY MD, [facility] Jul 25, 2024 16:56
--- NOTE | 2024-07-25 18:42 | PN ---
[facility] PROGRESS NOTE Date of Service: Jul 25, 2024 Time of Service: 18:40 SUBJECTIVE: 07/23 patient is seen and examined at bedside, case discussed with the RN, no acute events overnight, patient getting IV antibiotics during my visit, hemodynamically stable, afebrile, saturating normal on room air. Mildly tachycardic with a heart rate of 118, patient denies dizziness, no headache, no chest pain, shortness shortness a breath, no palpitation, no nausea, no vomiting, no abdominal pain, he is getting good pain control with current medical management. CT abdomen pelvis reviewed, fluid collection right perirectal region. Surgical consultation requested, follow input and recommendation. 07/24 Pt seen at bedside, no acute events overnight. Pending I&D with general surgery, will follow up post-procedure. Continue IV antibiotics 07/25 patient seen at bedside, no acute events overnight, I&D we will be done today, we will follow up postprocedure. He has been afebrile, hemodynamically stable, tachycardic with heart rate ranging from 98 up to 113, saturating well on room air, WBC improving from 14.6 down to 13.4, hemoglobin decreased from 13.4 down to 12.9, remainder of his labs are relatively unremarkable. REVIEW OF SYSTEMS 12 point ROS negative unless noted in HPI PHYSICAL EXAM GENERAL APPEARANCE: The patient is awake, alert, and oriented, in no acute cardiopulmonary distress. NEUROLOGICAL: Cranial nerves II-XII grossly intact. Motor is 5/5 in bilateral upper and lower extremities proximal to distal. No sensory deficits. HEENT: Face is symmetric. Pupils are equal and reactive. Extraocular movements are intact. NECK: Supple. No JVD. No thyromegaly. No submental, submandibular, pre- /postauricular, occipital or supraclavicular lymphadenopathy. CHEST: Normal chest expansion. No Telemetry. LUNGS: Absence of any rales, rhonchi or any wheezing. CARDIOVASCULAR: Regular. S1 and S2 normal. No appreciable rubs, murmurs or gallops. ABDOMEN: Soft, nontender, and nondistended. There is no rebound, voluntary guarding, or rigidity. : Deferred. No Butler. EXTREMITIES: Non-edematous and not cyanotic. No clubbing. Good capillary refill. SKIN: No skin breakdown. Vital Signs (last 8hr) Date Time Temp Pulse Resp B/P (MAP) Pulse Ox O2 Delivery O2 Flow Rate FiO2 07/25/24 16:23 105 117/68 95 Room Air 07/25/24 15:23 113 122/80 97 Room Air 07/25/24 14:23 98 117/74 95 Room Air 07/25/24 13:23 110 122/73 94 Room Air 07/25/24 12:23 121 128/82 96 Room Air 07/25/24 11:53 104 122/80 96 Room Air 07/25/24 11:23 92 119/79 96 Room Air 07/25/24 11:08 118 129/85 98 Room Air 07/25/24 10:53 98 131/82 98 Room Air 21 LABS: Laboratory: Test 07/25/24 05:22 07/24/24 06:22 Range/Units White Blood Count 13.4 H 4.8-10.8 K/uL Red Blood Count 4.45 L 4.50-6.20 MIL/uL Hemoglobin 12.9 L 14.0-18.0 g/dL Hematocrit 37.5 L 42-54 % Mean Corpuscular Volume 84.3 79-99 fL Mean Corpuscular Hemoglobin 29.0 27.0-33.0 pg Mean Corpuscular Hemoglobin Concent 34.4 32.0-36.0 g/dL Red Cell Distribution Width 13.1 11.0-15.5 % Platelet Count 282 130-400 K/uL Mean Platelet Volume 8.6 7.5-10.5 fL Immature Granulocyte % (Auto) 0.7 0-1 % Neutrophils (%) (Auto) 77.9 H 40.0-77.0 % Lymphocytes (%) (Auto) 15.0 L 21.0-51.0 % Monocytes (%) (Auto) 6.0 3.0-13.0 % Eosinophils (%) (Auto) 0.2 0.0-8.0 % Basophils (%) (Auto) 0.2 0.0-5.0 % Neutrophils # (Auto) 10.4 H 1.8-7.7 K/uL Lymphocytes # (Auto) 2.0 1.0-4.8 K/uL Monocytes # (Auto) 0.8 0.1-1.0 K/uL Eosinophils # (Auto) 0.03 0.00-0.70 K/uL Basophils # (Auto) 0.03 0.00-0.20 K/uL Absolute Immature Granulocyte (auto 0.09 0-1 K/uL Nucleated Red Blood Cells 0.0 0.0-0.19 % Sodium Level 139 136-145 mmol/L Potassium Level 3.8 3.5-5.1 mmol/L Chloride Level 106 101-111 mmol/L Carbon Dioxide Level 24 21-32 mmol/L Blood Urea Nitrogen 10 7-18 mg/dL Creatinine 1.1 0.5-1.3 mg/dL Glomerular Filtration Rate Calc 93 >90 mL/min Random Glucose 91 70-105 mg/dL Total Calcium 8.7 8.5-10.1 mg/dL Phosphorus Level 3.4 2.5-4.9 mg/dL Magnesium Level 1.70 L 1.80-2.40 mg/dL Total Bilirubin 1.0 # 0.2-1.0 mg/dL Aspartate Amino Transf (AST/SGOT) 34 10-37 U/L Alanine Aminotransferase (ALT/SGPT) 24 12-78 U/L Alkaline Phosphatase 108 50-136 U/L Total Protein 7.4 6.0-8.3 g/dL Albumin 2.8 L 3.5-5.0 g/dL Current Medications Medications (Trade) Dose Ordered Sig/Rocky Route PRN Reason Start Time Stop Time Status Last Admin Dose Admin Acetaminophen (TYLenol 325MG TAB) 650 mg Q4H PRN PO MILD PAIN (1-3) 07/22/24 22:00 07/23/24 09:29 DC Acetaminophen (TYLenol 325MG TAB) 650 mg Q4H PRN PO MILD PAIN (1-3) 07/23/24 09:30 08/22/24 09:29 Acetaminophen (TYLenol 325MG TAB) 650 mg Q6H PRN PO TEMPERATURE GREATER THAN 101.5 07/22/24 22:00 07/23/24 09:29 DC Acetaminophen (TYLenol 325MG TAB) 650 mg Q6H PRN PO TEMPERATURE GREATER THAN 101.5 07/23/24 09:30 08/22/24 09:29 07/25/24 14:28 650 MG Acetaminophen (TYLenol 650MG ELIXIR) 650 mg ONCE PRN PO TEMPERATURE GREATER THAN 101.5 07/22/24 15:30 07/23/24 09:29 DC 07/22/24 15:53 650 MG Acetaminophen (TYLenol 650MG ELIXIR) 650 mg ONCE PRN PO TEMPERATURE GREATER THAN 101.5 07/23/24 09:30 07/25/24 12:04 DC Famotidine (Pepcid 20mg Tab) 20 mg BID PO 07/23/24 09:00 07/23/24 09:29 DC Famotidine (Pepcid 20mg Tab) 20 mg BID PO 07/23/24 21:00 08/22/24 20:59 07/25/24 14:28 20 MG Hydromorphone HCl (DiLAUDid 1MG INJ) 1 mg [id number] PRN IVP prior to dressing change 07/25/24 10:00 07/30/24 09:59 Ketorolac Tromethamine (toRADol) 15 mg Q6H PRN IM MODERATE PAIN (4-6) 07/23/24 09:30 07/28/24 09:29 07/23/24 13:04 15 MG Levofloxacin/ Dextrose 150 ml @ 100 mls/hr Q24H IV 07/23/24 13:00 08/02/24 12:59 07/25/24 14:28 100 MLS/HR Levofloxacin/ Dextrose (LEvaquIN 750 MG/ D5W 150 ML) 750 mg Q24H IV 07/23/24 09:30 07/23/24 10:46 DC Levofloxacin/ Dextrose (LEvaquIN 750 MG/ D5W 150 ML) 750 mg Q24H IV 07/23/24 13:00 07/23/24 10:56 DC Metronidazole/ Sodium Chloride (flaGYL) 500 mg Q8H IV 07/23/24 11:00 08/02/24 10:59 07/25/24 14:28 500 MG Ondansetron HCl (zoFRAN 4MG INJ) 4 mg Q6H PRN IV NAUSEA/VOMITING 07/22/24 22:00 07/23/24 09:29 DC Ondansetron HCl (zoFRAN 4MG INJ) 4 mg Q6H PRN IV NAUSEA/VOMITING 07/23/24 09:30 08/22/24 09:29 Sodium Chloride 1,000 ml @ 75 mls/hr [id number] IV 07/22/24 22:30 07/23/24 09:30 DC 07/22/24 22:47 75 MLS/HR Sodium Chloride 1,000 ml @ 75 mls/hr [id number] IV 07/23/24 10:00 07/24/24 06:35 DC 07/23/24 10:44 75 MLS/HR Sodium Chloride 1,000 ml @ 120 mls/hr Q8H20M IV 07/24/24 07:00 08/23/24 06:59 07/24/24 15:20 120 MLS/HR Tramadol HCl (UltRAM) 50 mg Q6H PRN PO MODERATE PAIN (4-6) 07/22/24 22:30 07/23/24 09:24 DC 07/22/24 22:47 50 MG Vancomycin HCl 250 ml @ 125 mls/hr Q12H IV 07/23/24 06:00 07/23/24 09:24 DC 07/23/24 06:14 125 MLS/HR Vancomycin HCl (Vancomycin Protocol) 1 each AD IV 07/22/24 22:30 07/23/24 09:24 DC DIAGNOSTICS / RADIOLOGY: [ ] ASSESSMENT: Right perirectal abscess POA Acute Leukocytosis POA SIRS with organ dysfunction POA History of germ cell tumor and chemotherapy POA History of right orchiectomy POA History of perirectal abscess with I and D POA Hyperlipidemia POA Obesity POA Anxiety disorder POA PLAN: Remains admitted to medical floor Continue NPO Continue broad-spectrum IV antibiotics. Surgical consultation requested, follow input and recommendation. Infectious disease consultation requested, follow input and recommendation. Continue Levaquin and Flagyl IV Continue Toradol 50 mg IV every 6 hours as needed for pain control with the adjustment as needed Disposition: Pending I&D and post op course DENILSON ELLIOTT MD Jul 25, 2024 18:42
[2024-07-26] VITALS (9 sets, daily range): BP systolic 103–110; BP diastolic 50–71; PULSE 80–103; RESP 18–24; TEMP 97.6–98.2; O2SAT 95–96
[2024-07-26] MEDS: metRONIDazole 500MG/100ML BAG IV SCH (05:54)
[2024-07-26 06:01] LABS: BASOPHILS # (AUTO) 0.02 K/uL (0.00-0.20); BASOPHILS % (AUTO) 0.1 % (0.0-5.0); HEMATOCRIT 38.6 % (42-54); IMMATURE GRANULOCYTE ABSOLUTE 0.17 K/uL (0-1); LYMPHOCYTES # (AUTO) 1.8 K/uL (1.0-4.8); MEAN CORPUSCULAR HEMOGLOBIN 29.1 pg (27.0-33.0); MEAN CORPUSCULAR HGB CONC 33.4 g/dL (32.0-36.0); MEAN CORPUSCULAR VOLUME 87.1 fL (79-99); MONOCYTES % (AUTO) 6.1 % (3.0-13.0); NEUTROPHILS # (AUTO) 13.7 K/uL (1.8-7.7); NEUTROPHILS % (AUTO) 81.8 % (40.0-77.0); PLATELET COUNT (AUTO) 336 K/uL (130-400); RED BLOOD CELL COUNT(AUTO) 4.43 MIL/uL (4.50-6.20); WHITE BLOOD COUNT (AUTO) 16.7 K/uL (4.8-10.8)
[2024-07-26 06:25] LABS: POTASSIUM 3.8 mmol/L (3.5-5.1)
--- NOTE | 2024-07-26 08:35 | PN ---
LOCATION: [facility] SUBJECTIVE: The patient had his surgery. His mother is at the bedside. Awake, alert. No fever, chills or other complaints. PHYSICAL EXAMINATION: GENERAL: Shows young man. VITAL SIGNS: Blood pressure 107/58, pulse 90, respirations 20. CHEST: Clear. ABDOMEN: Soft. IMPRESSION: His surgery site looks okay. Status post abscess drainage. Testicular cancer in remission. Other problems as listed. PLAN: Continue his antibiotics. Follow his blood counts. Wound care. He should be able to go home soon on antibiotics. TID: [id number] RECEIPT: [id number]
[2024-07-26] MEDS: hydroMORPHone 1 MG INJ IVP PRN (12:03)
--- NOTE | 2024-07-26 12:32 | NUR ---
WOUND CARE TO PERINEAL AREA DONE. PACKED WITH GUAZE WET TO DRY DRESSING. RED SUTURES IN PLACE. MOTHER AT BEDSIDE FOR HANDS ON INSTRUCTION
--- NOTE | 2024-07-26 13:35 | PN ---
[facility] PROGRESS NOTE Date of Service: Jul 26, 2024 Time of Service: 13:33 SUBJECTIVE: 07/23 patient is seen and examined at bedside, case discussed with the RN, no acute events overnight, patient getting IV antibiotics during my visit, hemodynamically stable, afebrile, saturating normal on room air. Mildly tachycardic with a heart rate of 118, patient denies dizziness, no headache, no chest pain, shortness shortness a breath, no palpitation, no nausea, no vomiting, no abdominal pain, he is getting good pain control with current medical management. CT abdomen pelvis reviewed, fluid collection right perirectal region. Surgical consultation requested, follow input and recommendation. 07/24 Pt seen at bedside, no acute events overnight. Pending I&D with general surgery, will follow up post-procedure. Continue IV antibiotics 07/25 patient seen at bedside, no acute events overnight, I&D we will be done today, we will follow up postprocedure. He has been afebrile, hemodynamically stable, tachycardic with heart rate ranging from 98 up to 113, saturating well on room air, WBC improving from 14.6 down to 13.4, hemoglobin decreased from 13.4 down to 12.9, remainder of his labs are relatively unremarkable. 07/26 patient seen at bedside, no acute events overnight. He is status post I and D of perianal abscess. Wound care consulted and we will teach patient's mother how to do wound care. He has continued to be tachycardic heart rate ranging from 98 up to 121, we will continue observation for another 24 hours if more stable tomorrow will be discharged home. WBC increased from 13.4 up to 16.7, hemoglobin stable at 12.9, same as yesterday, remainder of his labs are relatively unremarkable. REVIEW OF SYSTEMS 12 point ROS negative unless noted in HPI PHYSICAL EXAM GENERAL APPEARANCE: The patient is awake, alert, and oriented, in no acute cardiopulmonary distress. NEUROLOGICAL: Cranial nerves II-XII grossly intact. Motor is 5/5 in bilateral upper and lower extremities proximal to distal. No sensory deficits. HEENT: Face is symmetric. Pupils are equal and reactive. Extraocular movements are intact. NECK: Supple. No JVD. No thyromegaly. No submental, submandibular, pre-/postauricular, occipital or supraclavicular lymphadenopathy. CHEST: Normal chest expansion. No Telemetry. LUNGS: Absence of any rales, rhonchi or any wheezing. CARDIOVASCULAR: Regular. S1 and S2 normal. No appreciable rubs, murmurs or gallops. ABDOMEN: Soft, nontender, and nondistended. There is no rebound, voluntary guarding, or rigidity. : Deferred. No Butler. EXTREMITIES: Non-edematous and not cyanotic. No clubbing. Good capillary refill. SKIN: No skin breakdown. Vital Signs (last 8hr) Date Time Temp Pulse Resp B/P (MAP) Pulse Ox O2 Delivery O2 Flow Rate FiO2 07/26/24 12:00 97.5 90 24 104/69 98 Room Air 07/26/24 10:16 95 Room Air* 0 21 07/26/24 08:00 98.2 83 20 103/50 96 Room Air LABS: Laboratory: Test 07/26/24 05:54 07/25/24 05:22 Range/Units White Blood Count 16.7 H 4.8-10.8 K/uL Red Blood Count 4.43 L 4.50-6.20 MIL/uL Hemoglobin 12.9 L 14.0-18.0 g/dL Hematocrit 38.6 L 42-54 % Mean Corpuscular Volume 87.1 79-99 fL Mean Corpuscular Hemoglobin 29.1 27.0-33.0 pg Mean Corpuscular Hemoglobin Concent 33.4 32.0-36.0 g/dL Red Cell Distribution Width 13.0 11.0-15.5 % Platelet Count 336 130-400 K/uL Mean Platelet Volume 8.6 7.5-10.5 fL Immature Granulocyte % (Auto) 1.0 0-1 % Neutrophils (%) (Auto) 81.8 H 40.0-77.0 % Lymphocytes (%) (Auto) 11.0 L 21.0-51.0 % Monocytes (%) (Auto) 6.1 3.0-13.0 % Eosinophils (%) (Auto) 0.0 0.0-8.0 % Basophils (%) (Auto) 0.1 0.0-5.0 % Neutrophils # (Auto) 13.7 H 1.8-7.7 K/uL Lymphocytes # (Auto) 1.8 1.0-4.8 K/uL Monocytes # (Auto) 1.0 0.1-1.0 K/uL Eosinophils # (Auto) 0.00 0.00-0.70 K/uL Basophils # (Auto) 0.02 0.00-0.20 K/uL Absolute Immature Granulocyte (auto 0.17 0-1 K/uL Nucleated Red Blood Cells 0.0 0.0-0.19 % Sodium Level 140 136-145 mmol/L Potassium Level 3.8 3.5-5.1 mmol/L Chloride Level 105 101-111 mmol/L Carbon Dioxide Level 25 21-32 mmol/L Blood Urea Nitrogen 11 7-18 mg/dL Creatinine 1.0 0.5-1.3 mg/dL Glomerular Filtration Rate Calc 104 >90 mL/min Random Glucose 136 H 70-105 mg/dL Total Calcium 9.3 8.5-10.1 mg/dL Phosphorus Level 3.4 2.5-4.9 mg/dL Magnesium Level 1.70 L 1.80-2.40 mg/dL Current Medications Medications (Trade) Dose Ordered Sig/Rocky Route PRN Reason Start Time Stop Time Status Last Admin Dose Admin Acetaminophen (TYLenol 325MG TAB) 650 mg Q4H PRN PO MILD PAIN (1-3) 07/22/24 22:00 07/23/24 09:29 DC Acetaminophen (TYLenol 325MG TAB) 650 mg Q4H PRN PO MILD PAIN (1-3) 07/23/24 09:30 08/22/24 09:29 Acetaminophen (TYLenol 325MG TAB) 650 mg Q6H PRN PO TEMPERATURE GREATER THAN 101.5 07/22/24 22:00 07/23/24 09:29 DC Acetaminophen (TYLenol 325MG TAB) 650 mg Q6H PRN PO TEMPERATURE GREATER THAN 101.5 07/23/24 09:30 08/22/24 09:29 07/25/24 14:28 650 MG Acetaminophen (TYLenol 650MG ELIXIR) 650 mg ONCE PRN PO TEMPERATURE GREATER THAN 101.5 07/22/24 15:30 07/23/24 09:29 DC 07/22/24 15:53 650 MG Acetaminophen (TYLenol 650MG ELIXIR) 650 mg ONCE PRN PO TEMPERATURE GREATER THAN 101.5 07/23/24 09:30 07/25/24 12:04 DC Famotidine (Pepcid 20mg Tab) 20 mg BID PO 07/23/24 09:00 07/23/24 09:29 DC Famotidine (Pepcid 20mg Tab) 20 mg BID PO 07/23/24 21:00 08/22/24 20:59 07/26/24 08:55 20 MG Hydromorphone HCl (DiLAUDid 1MG INJ) 1 mg [id number] PRN IVP prior to dressing change 07/25/24 10:00 07/30/24 09:59 07/26/24 12:03 1 MG Ketorolac Tromethamine (toRADol) 15 mg Q6H PRN IM MODERATE PAIN (4-6) 07/23/24 09:30 07/28/24 09:29 07/23/24 13:04 15 MG Levofloxacin/ Dextrose 150 ml @ 100 mls/hr Q24H IV 07/23/24 13:00 08/02/24 12:59 07/26/24 12:03 100 MLS/HR Levofloxacin/ Dextrose (LEvaquIN 750 MG/ D5W 150 ML) 750 mg Q24H IV 07/23/24 09:30 07/23/24 10:46 DC Levofloxacin/ Dextrose (LEvaquIN 750 MG/ D5W 150 ML) 750 mg Q24H IV 07/23/24 13:00 07/23/24 10:56 DC Metronidazole/ Sodium Chloride (flaGYL) 500 mg Q8H IV 07/23/24 11:00 07/26/24 03:18 DC 07/25/24 22:28 500 MG Metronidazole/ Sodium Chloride (flaGYL) 500 mg Q8H IV 07/26/24 06:00 08/05/24 05:59 07/26/24 05:54 500 MG Ondansetron HCl (zoFRAN 4MG INJ) 4 mg Q6H PRN IV NAUSEA/VOMITING 07/22/24 22:00 07/23/24 09:29 DC Ondansetron HCl (zoFRAN 4MG INJ) 4 mg Q6H PRN IV NAUSEA/VOMITING 07/23/24 09:30 08/22/24 09:29 Sodium Chloride 1,000 ml @ 75 mls/hr [id number] IV 07/22/24 22:30 07/23/24 09:30 DC 07/22/24 22:47 75 MLS/HR Sodium Chloride 1,000 ml @ 75 mls/hr [id number] IV 07/23/24 10:00 07/24/24 06:35 DC 07/23/24 10:44 75 MLS/HR Sodium Chloride 1,000 ml @ 120 mls/hr Q8H20M IV 07/24/24 07:00 08/23/24 06:59 07/26/24 08:55 120 MLS/HR Tramadol HCl (UltRAM) 50 mg Q6H PRN PO MODERATE PAIN (4-6) 07/22/24 22:30 07/23/24 09:24 DC 07/22/24 22:47 50 MG Vancomycin HCl 250 ml @ 125 mls/hr Q12H IV 07/23/24 06:00 07/23/24 09:24 DC 07/23/24 06:14 125 MLS/HR Vancomycin HCl (Vancomycin Protocol) 1 each AD IV 07/22/24 22:30 07/23/24 09:24 DC DIAGNOSTICS / RADIOLOGY: [ ] ASSESSMENT: Right perirectal abscess POA Acute Leukocytosis POA SIRS with organ dysfunction POA History of germ cell tumor and chemotherapy POA History of right orchiectomy POA History of perirectal abscess with I and D POA Hyperlipidemia POA Obesity POA Anxiety disorder POA PLAN: Remains admitted to medical floor Cultures are no growth to date Continue broad-spectrum IV antibiotics. Surgical consultation requested, follow input and recommendation. Infectious disease consultation requested, follow input and recommendation. Continue Levaquin and Flagyl IV Continue Toradol 50 mg IV every 6 hours as needed for pain control with the adjustment as needed Disposition: Pending wound care and postop recovery DENILSON ELLIOTT MD Jul 26, 2024 13:35
--- NOTE | 2024-07-26 14:20 | NUR ---
[facility] Consult: Wound care done by primary nurse. Recommendations provided to primary nurse, will assess next day. Education provided. Addendum: 07/27/24 at 1421 by TIFFANY HELMS RN RN/ Amended: Links added.
--- NOTE | 2024-07-26 15:45 | PN ---
This is a 29-year-old male status post incision and drainage of right perirectal abscess Interval history This 29-year-old male seen in his room resting Packing has been removed and changed today Patient tolerating pain well WBCs 16 with a hemoglobin of 12 Patient continues IV fluids and IV antibiotics Wound care team has been consulted for assistance with management From surgical standpoint once patient has appropriate antibiotics set up family has been instructed on appropriate wound care patient cleared from surgical standpoint for discharge Follow up in two weeks with Dr. Ward Possible discharge tomorrow Vitals/Labs Vital Signs Date Time Temp Pulse Resp B/P (MAP) Pulse Ox O2 Delivery O2 Flow Rate FiO2 07/26/24 12:00 97.5 90 24 104/69 98 Room Air 07/26/24 10:16 0 21 Laboratory Tests 07/26/24 05:54 Medications Current Medications Acetaminophen 650 mg ONCE PRN PO Last administered on 07/22/24at 15:53; Start 07/22/24 at 15:30; Stop 07/23/24 at 09:29; Status DC Vancomycin HCl 250 ml @ 125 mls/hr ONCE ONCE IV Last administered on 07/22/24at 18:04; Start 07/22/24 at 16:30; Stop 07/22/24 at 18:29; Status DC Sodium Chloride 2,721 ml @ 907 mls/hr ONCE ONCE IV Last administered on 07/22/24at 18:04; Start 07/22/24 at 16:30; Stop 07/22/24 at 19:29; Status DC Iohexol 75 ml STK-MED ONCE IV; Start 07/22/24 at 17:44; Stop 07/22/24 at 17:44; Status DC Acetaminophen 650 mg Q6H PRN PO; Start 07/22/24 at 22:00; Stop 07/23/24 at 09:29; Status DC Acetaminophen 650 mg Q4H PRN PO; Start 07/22/24 at 22:00; Stop 07/23/24 at 09:29; Status DC Ondansetron HCl 4 mg Q6H PRN IV; Start 07/22/24 at 22:00; Stop 07/23/24 at 09:29; Status DC Famotidine 20 mg BID PO; Start 07/23/24 at 09:00; Stop 07/23/24 at 09:29; Status DC Vancomycin HCl 250 ml @ 125 mls/hr ONCE ONCE IV; Start 07/22/24 at 22:00; Stop 07/22/24 at 22:09; Status DC Vancomycin HCl 1 each AD IV; Start 07/22/24 at 22:30; Stop 07/23/24 at 09:24; Status DC Vancomycin HCl 250 ml @ 125 mls/hr Q12H IV Last administered on 07/23/24at 06:14; Start 07/23/24 at 06:00; Stop 07/23/24 at 09:24; Status DC Tramadol HCl 50 mg Q6H PRN PO Last administered on 07/22/24at 22:47; Start 07/22/24 at 22:30; Stop 07/23/24 at 09:24; Status DC Sodium Chloride 1,000 ml @ 75 mls/hr [id number] IV Last administered on 07/22/24at 22:47; Start 07/22/24 at 22:30; Stop 07/23/24 at 09:30; Status DC Levofloxacin/ Dextrose 750 mg Q24H IV; Start 07/23/24 at 09:30; Stop 07/23/24 at 10:46; Status DC Metronidazole/ Sodium Chloride 500 mg Q8H IV Last administered on 07/25/24at 22:28; Start 07/23/24 at 11:00; Stop 07/26/24 at 03:18; Status DC Ketorolac Tromethamine 15 mg Q6H PRN IM Last administered on 07/23/24at 13:04; Start 07/23/24 at 09:30; Stop 07/28/24 at 09:29 Acetaminophen 650 mg ONCE PRN PO; Start 07/23/24 at 09:30; Stop 07/25/24 at 12:04; Status DC Acetaminophen 650 mg Q6H PRN PO Last administered on 07/25/24at 14:28; Start 07/23/24 at 09:30; Stop 08/22/24 at 09:29 Acetaminophen 650 mg Q4H PRN PO; Start 07/23/24 at 09:30; Stop 08/22/24 at 09:29 Ondansetron HCl 4 mg Q6H PRN IV; Start 07/23/24 at 09:30; Stop 08/22/24 at 09:29 Famotidine 20 mg BID PO Last administered on 07/26/24at 08:55; Start 07/23/24 at 21:00; Stop 08/22/24 at 20:59 Sodium Chloride 1,000 ml @ 75 mls/hr [id number] IV Last administered on 07/23/24at 10:44; Start 07/23/24 at 10:00; Stop 07/24/24 at 06:35; Status DC Levofloxacin/ Dextrose 750 mg Q24H IV; Start 07/23/24 at 13:00; Stop 07/23/24 at 10:56; Status DC Levofloxacin/ Dextrose 150 ml @ 100 mls/hr Q24H IV Last administered on 07/26/24at 12:03; Start 07/23/24 at 13:00; Stop 08/02/24 at 12:59 Sodium Chloride 1,000 ml @ 120 mls/hr Q8H20M IV Last administered on 07/26/24at 08:55; Start 07/24/24 at 07:00; Stop 08/23/24 at 06:59 Dexamethasone Sodium Phosphate 10 mg STK-MED ONCE .ROUTE; Start 07/25/24 at 07:19; Stop 07/25/24 at 07:19; Status DC Ondansetron HCl 4 mg STK-MED ONCE .ROUTE; Start 07/25/24 at 07:19; Stop 07/25/24 at 07:19; Status DC Lidocaine HCl 100 mg STK-MED ONCE .ROUTE; Start 07/25/24 at 07:19; Stop 07/25/24 at 07:19; Status DC Propofol 200 mg STK-MED ONCE IV; Start 07/25/24 at 07:19; Stop 07/25/24 at 07:20; Status DC Succinylcholine Chloride 200 mg STK-MED ONCE .ROUTE; Start 07/25/24 at 07:19; Stop 07/25/24 at 07:20; Status DC Glycopyrrolate 1 mg STK-MED ONCE .ROUTE; Start 07/25/24 at 07:19; Stop 07/25/24 at 07:20; Status DC Fentanyl Citrate 100 mcg STK-MED ONCE .ROUTE; Start 07/25/24 at 07:20; Stop 07/25/24 at 07:20; Status DC Neostigmine Methylsulfate 10 mg STK-MED ONCE IV; Start 07/25/24 at 07:20; Stop 07/25/24 at 07:20; Status DC Rocuronium [place] 50 mg STK-MED ONCE .ROUTE; Start 07/25/24 at 07:20; Stop 07/25/24 at 07:20; Status DC Midazolam HCl 2 mg STK-MED ONCE .ROUTE; Start 07/25/24 at 07:20; Stop 07/25/24 at 07:21; Status DC Bupivacaine HCl/ Epinephrine Bitart 10 ml STK-MED ONCE IJ; Start 07/25/24 at 07:46; Stop 07/25/24 at 07:47; Status DC Phenylephrine HCl 10 mg STK-MED ONCE IV; Start 07/25/24 at 08:32; Stop 07/25/24 at 08:33; Status DC Fentanyl Citrate 100 mcg STK-MED ONCE .ROUTE; Start 07/25/24 at 08:36; Stop 07/25/24 at 08:37; Status DC Hydromorphone HCl 1 mg [id number] PRN IVP Last administered on 07/26/24at 12:03; Start 07/25/24 at 10:00; Stop 07/30/24 at 09:59 Metronidazole/ Sodium Chloride 500 mg Q8H IV Last administered on 07/26/24at 15:23; Start 07/26/24 at 06:00; Stop 08/05/24 at 05:59 ANGELITA EL Jr. Jul 26, 2024 15:45
--- NOTE | 2024-07-26 20:31 | PN ---
INFECTIOUS DISEASE PROGRESS NOTE Date of Service: Jul 26, 2024 SUBJECTIVE: This is a 29-year-old male patient with past medical history of previous perirectal abscess with I&D, right tumor testicle, status post orchiectomy who presented to the emergency room for evaluation of right perineal rectal abscess and fever. On admission patient had a WBC of 17.9 and a fever of 100.6. A CT of the abdomen/pelvis showed an 8.8 x 2.3 cm air-fluid collection in the right perirectal region/right medial gluteal fold suggesting abscess. General surgeon was consulted and was started on levofloxacin and metronidazole IV. Patient was seen and examined at bedside in room 326. Patient is awake, alert and oriented. Patient is s/p incision and drainage of the right perirectal abscess day # 1. We will follow up on the abscess culture results. The WBC is slightly elevated at 16.7 but patient remains afebrile, temperature is 97.5. Case management working on arranging for dressing changes. Will continue to follow patient's care. PHYSICAL EXAM EYES: Anicteric. Pupils equal and reactive. HENT: No oral thrush seen, moist Oral mucosa. NECK: Supple, no JVD or thyromegaly. LUNGS: Good air entry. No rales, no rhonchi. CARDIOVASCULAR: S1, S2 regular. No murmur heard. ABDOMEN: Soft, non tender, bowel sounds present, no organomegaly. CENTRAL NERVOUS SYSTEM: Awake, alert, oriented x 3. SKIN: No rashes, no swelling. LYMPHATICS: No peripheral lymphadenopathy. MUSCULOSKELETAL: No joint swelling, erythema or tenderness. EXTREMITIES: No cyanosis or clubbing BACK: No deformity, no pressure ulcer. Perirectal abscess. GENITOURINARY: No dysuria or hematuria. Vital Sign (Last 12 Hours) 07/26/24 07/26/24 07/26/24 10:16 12:00 16:00 Temp 97.5 97.5 Pulse 90 103 Resp 24 19 B/P (MAP) 104/69 103/56 Pulse Ox 95 98 97 O2 Delivery Room Air* Room Air Room Air O2 Flow Rate 0 FiO2 21 Intake & Output (last 24hrs) 07/25/24 07/25/24 07/26/24 15:00 23:00 07:00 Intake Total 1200 ml Balance 1200 ml LABS: Laboratory: Test 07/26/24 05:54 07/25/24 05:22 Range/Units White Blood Count 16.7 H 4.8-10.8 K/uL Red Blood Count 4.43 L 4.50-6.20 MIL/uL Hemoglobin 12.9 L 14.0-18.0 g/dL Hematocrit 38.6 L 42-54 % Mean Corpuscular Volume 87.1 79-99 fL Mean Corpuscular Hemoglobin 29.1 27.0-33.0 pg Mean Corpuscular Hemoglobin Concent 33.4 32.0-36.0 g/dL Red Cell Distribution Width 13.0 11.0-15.5 % Platelet Count 336 130-400 K/uL Mean Platelet Volume 8.6 7.5-10.5 fL Immature Granulocyte % (Auto) 1.0 0-1 % Neutrophils (%) (Auto) 81.8 H 40.0-77.0 % Lymphocytes (%) (Auto) 11.0 L 21.0-51.0 % Monocytes (%) (Auto) 6.1 3.0-13.0 % Eosinophils (%) (Auto) 0.0 0.0-8.0 % Basophils (%) (Auto) 0.1 0.0-5.0 % Neutrophils # (Auto) 13.7 H 1.8-7.7 K/uL Lymphocytes # (Auto) 1.8 1.0-4.8 K/uL Monocytes # (Auto) 1.0 0.1-1.0 K/uL Eosinophils # (Auto) 0.00 0.00-0.70 K/uL Basophils # (Auto) 0.02 0.00-0.20 K/uL Absolute Immature Granulocyte (auto 0.17 0-1 K/uL Nucleated Red Blood Cells 0.0 0.0-0.19 % Sodium Level 140 136-145 mmol/L Potassium Level 3.8 3.5-5.1 mmol/L Chloride Level 105 101-111 mmol/L Carbon Dioxide Level 25 21-32 mmol/L Blood Urea Nitrogen 11 7-18 mg/dL Creatinine 1.0 0.5-1.3 mg/dL Glomerular Filtration Rate Calc 104 >90 mL/min Random Glucose 136 H 70-105 mg/dL Total Calcium 9.3 8.5-10.1 mg/dL Phosphorus Level 3.4 2.5-4.9 mg/dL Magnesium Level 1.70 L 1.80-2.40 mg/dL ASSESSMENT: Right perirectal abscess, status post incision and drainage. Leukocytosis. Right testicle tumor, status post orchiectomy. Right Port-A-Cath in place. PLAN: Continue levofloxacin. Continue metronidazole IV. Continue pain management. Will Follow up on the culture results. Antibiotics to be adjusted when culture is updated or finalized. This case was reviewed and discussed with my supervising physician and the above assessment and plan was formulated and agreed upon. ATTESTATION BY PHYSICIAN I have seen and examined the patient. I reviewed the documentation, medical decision making, and treatment plan as noted by the mid-level provider above. I agree with the findings and plan of care. WIN MURPHY MD, MIRTA L [facility] Jul 26, 2024 20:31
[2024-07-26] MEDS: acetaMINOPHEN 325 MG TAB PO PRN (22:10)
[2024-07-27 04:00] VITALS: BP 108/75; PULSE 76; RESP 18; TEMP 97.6
[2024-07-27 05:33] LABS: BASOPHILS # (AUTO) 0.04 K/uL (0.00-0.20); BASOPHILS % (AUTO) 0.4 % (0.0-5.0); EOSINOPHILS # (AUTO) 0.04 K/uL (0.00-0.70); EOSINOPHILS % (AUTO) 0.4 % (0.0-8.0); HEMATOCRIT 39.1 % (42-54); LYMPHOCYTES # (AUTO) 3.6 K/uL (1.0-4.8); LYMPHOCYTES % (AUTO) 31.6 % (21.0-51.0); MEAN CORPUSCULAR HEMOGLOBIN 28.6 pg (27.0-33.0); MEAN CORPUSCULAR HGB CONC 32.2 g/dL (32.0-36.0); MEAN CORPUSCULAR VOLUME 88.9 fL (79-99); MONOCYTES # (AUTO) 0.6 K/uL (0.1-1.0); MONOCYTES % (AUTO) 4.9 % (3.0-13.0); NEUTROPHILS # (AUTO) 6.9 K/uL (1.8-7.7); NEUTROPHILS % (AUTO) 60.9 % (40.0-77.0); PLATELET COUNT (AUTO) 316 K/uL (130-400); RED CELL DISTRIBUTION WIDTH 13.2 % (11.0-15.5); WHITE BLOOD COUNT (AUTO) 11.3 K/uL (4.8-10.8)
[2024-07-27 05:43] LABS: CREATININE 1.1 mg/dL (0.5-1.3); POTASSIUM 3.2 mmol/L (3.5-5.1)
[2024-07-27 08:00] VITALS: BP 113/76; PULSE 78; RESP 17; TEMP 98.2
--- NOTE | 2024-07-27 09:30 | PN ---
LOCATION: [facility]. SUBJECTIVE: The patient had an I and D of the scrotal abscess. He is awake, alert. No fever, sweats, or complaints. PHYSICAL EXAMINATION: Stable. IMPRESSION: Perineal-rectal abscess, drained. Leukocytosis due to above. Testicular cancer in remission. Other problems as listed. PLAN: Continue antibiotics. Continue wound care. He probably can go home with home health and antibiotics and wound care can be set up. TID: [id number] RECEIPT: [id number]
[2024-07-27 10:06] VITALS: O2SAT 96
[2024-07-27 12:00] VITALS: BP 101/62; PULSE 112; RESP 17; TEMP 98.2
--- NOTE | 2024-07-27 12:23 | NUR ---
[facility] Follow-up: Patient re-assessed by wound healing team. See wound assessment. Assessment and recommendations provided to primary nurse. Education provided. Wound care done. Addendum: 07/27/24 at 1424 by TIFFANY HELMS RN RN/ Amended: Links added.
[2024-07-27] MEDS ORDERED: METR-172 PO (13:12)
[2024-07-27] MEDS ORDERED: LEVO750T40 PO (13:12)
--- NOTE | 2024-07-27 13:33 | PN ---
INFECTIOUS DISEASE PROGRESS NOTE Date of Service: Jul 27, 2024 SUBJECTIVE: This is a 29-year-old male patient with past medical history of previous perirectal abscess with I&D, right tumor testicle, status post orchiectomy who presented to the emergency room for evaluation of right perineal rectal abscess and fever. On admission patient had a WBC of 17.9 and a fever of 100.6. A CT of the abdomen/pelvis showed an 8.8 x 2.3 cm air-fluid collection in the right perirectal region/right medial gluteal fold suggesting abscess. General surgeon was consulted and was started on levofloxacin and metronidazole IV. Patient was seen and examined at bedside in room 326. Patient is awake, alert and oriented. Patient is s/p incision and drainage of the right perirectal abscess on 07/25/2024. Patient is afebrile this morning, temperature 98.2 and a WBC has trended down to 11.3. We will continue to follow up on the abscess culture results. Continues on levofloxacin and metronidazole IV. Per report case management was able to arrange for dressing changes at the wound care center. Will continue to follow patient's care. PHYSICAL EXAM EYES: Anicteric. Pupils equal and reactive. HENT: No oral thrush seen, moist Oral mucosa. NECK: Supple, no JVD or thyromegaly. LUNGS: Good air entry. No rales, no rhonchi. CARDIOVASCULAR: S1, S2 regular. No murmur heard. ABDOMEN: Soft, non tender, bowel sounds present, no organomegaly. CENTRAL NERVOUS SYSTEM: Awake, alert, oriented x 3. SKIN: No rashes, no swelling. LYMPHATICS: No peripheral lymphadenopathy. MUSCULOSKELETAL: No joint swelling, erythema or tenderness. EXTREMITIES: No cyanosis or clubbing BACK: No deformity, no pressure ulcer. Perirectal abscess. GENITOURINARY: No dysuria or hematuria. Vital Sign (Last 12 Hours) 07/27/24 07/27/24 07/27/24 07/27/24 04:00 08:00 10:06 12:00 Temp 97.5 98.2 98.2 Pulse 76 78 112 Resp 18 17 17 B/P (MAP) 108/75 113/76 101/62 Pulse Ox 100 96 96 99 O2 Delivery Room Air Room Air Room Air* Room Air O2 Flow Rate 0 FiO2 21 LABS: Laboratory: Test 07/27/24 04:19 Range/Units White Blood Count 11.3 #H 4.8-10.8 K/uL Red Blood Count 4.40 L 4.50-6.20 MIL/uL Hemoglobin 12.6 L 14.0-18.0 g/dL Hematocrit 39.1 L 42-54 % Mean Corpuscular Volume 88.9 79-99 fL Mean Corpuscular Hemoglobin 28.6 27.0-33.0 pg Mean Corpuscular Hemoglobin Concent 32.2 32.0-36.0 g/dL Red Cell Distribution Width 13.2 11.0-15.5 % Platelet Count 316 130-400 K/uL Mean Platelet Volume 8.9 7.5-10.5 fL Immature Granulocyte % (Auto) 1.8 H 0-1 % Neutrophils (%) (Auto) 60.9 40.0-77.0 % Lymphocytes (%) (Auto) 31.6 21.0-51.0 % Monocytes (%) (Auto) 4.9 3.0-13.0 % Eosinophils (%) (Auto) 0.4 0.0-8.0 % Basophils (%) (Auto) 0.4 0.0-5.0 % Neutrophils # (Auto) 6.9 1.8-7.7 K/uL Lymphocytes # (Auto) 3.6 1.0-4.8 K/uL Monocytes # (Auto) 0.6 0.1-1.0 K/uL Eosinophils # (Auto) 0.04 0.00-0.70 K/uL Basophils # (Auto) 0.04 0.00-0.20 K/uL Absolute Immature Granulocyte (auto 0.20 0-1 K/uL Nucleated Red Blood Cells 0.0 0.0-0.19 % Sodium Level 142 136-145 mmol/L Potassium Level 3.2 L 3.5-5.1 mmol/L Chloride Level 108 101-111 mmol/L Carbon Dioxide Level 26 21-32 mmol/L Blood Urea Nitrogen 11 7-18 mg/dL Creatinine 1.1 0.5-1.3 mg/dL Glomerular Filtration Rate Calc 93 >90 mL/min Random Glucose 89 70-105 mg/dL Total Calcium 8.5 8.5-10.1 mg/dL ASSESSMENT: Right perirectal abscess, status post incision and drainage. Leukocytosis. Right testicle tumor, status post orchiectomy. Right Port-A-Cath in place. PLAN: Continue levofloxacin. Continue metronidazole IV. Continue pain management. Will Follow up on the abscess culture results. Antibiotics to be adjusted when culture is updated or finalized. This case was reviewed and discussed with my supervising physician and the above assessment and plan was formulated and agreed upon. ATTESTATION BY PHYSICIAN I have seen and examined the patient. I reviewed the documentation, medical decision making, and treatment plan as noted by the mid-level provider above. I agree with the findings and plan of care. WIN MURPHY MD, MIRTA L [facility] Jul 27, 2024 13:33
--- NOTE | 2024-07-27 14:59 | NUR ---
D/C INSTRUCTIONS GIVE TO MOTHER AND ACKNOWLEDGED. IV LINES REMOVES. WOUND PHOTO TAKEN EARLIER BY WOUND CARE NURSE
--- NOTE | 2024-07-27 17:15 | DS ---
Discharge Summary Hospital Course Summary: 29-year-old male with past medical history of mixed germ-cell tumor status post chemotherapy , right Port-A-Cath, perirectal abscess with I and D, anxiety disorder, obesity and hyperlipidemia who presents to the ED for evaluation of right perirectal abscess which started two days ago and patient has been having pain and started having fever. Patient reports he had similar problem like this before and was told it was a perirectal abscess that was drained on 03/19/2023. Patient denies any other symptoms. WBC 17.9, lactic acid 1.1, a CT scan of the abdomen/pelvis showed an 8.8 x 2.3 cm air-fluid collection in the right perirectal region consistent with abscess. Patient was admitted, started on broad-spectrum antibiotics and general surgery was consulted. Patient was taken for an I and D with packing placement, he tolerated the procedure well see the op note for more details. Postoperatively he recovered well, Wound Care was consulted and thought his mother how to do the wound care changes and cleaning. He was provided wound care supplies and scheduled regular follow up at the [facility] Care [facility]. By hospital day three he was evaluated as stable and cleared for discharge on 10 more days of oral antibiotics. Counseling Case Manager(s): General surgery Wound care Infectious disease Procedure(s): CT ABDOMEN/PELVIS W/CONTRAST HISTORY: PERIRECTAL ABSCESS TECHNIQUE: CT ABDOMEN/PELVIS W/CONTRAST Omnipaque contrast was used. Oral contrast was not given. Coronal and sagittal reformats were obtained. CT was performed with one or more of the following dose reduction techniques: Automated exposure control, adjustment of the mA and/or kV according to the patient's size, or use of the iterative reconstruction technique. Comparison: CT dated 06/13/2019 FINDINGS: No pulmonary consolidation or pleural effusion is seen. Unremarkable liver parenchyma. Gallstones are seen. There is no CT evidence of gallbladder wall thickening. The spleen, pancreas, and adrenal glands are within normal limits. No hydronephrosis. The urinary bladder is partially distended. 8.8 x 2.3 cm air-fluid collection seen in the right perirectal region suggesting perirectal abscess. Small amount of air is seen which may may be related to open ulcer versus gas-forming infection such as necrotizing infection. Correlate clinically. 3.3 cm cystic structure seen in the right pelvis, incompletely characterized. No bowel obstruction identified. Appendix is normal in caliber. Visualized aorta is normal in caliber. No acute osseous findings. IMPRESSION: 1. 8.8 x 2.3 cm air-fluid collection seen in the right perirectal region/right medial gluteal fold suggesting abscess. Small amount of air is seen which may may be related to open drainage versus gas-forming infection such as necrotizing infection. Correlate clinically. 2. 3.3 cm cystic structure seen in the right pelvis, incompletely characterized. Assessment/Plan: Right perirectal abscess, status post I and D (07/25/24) POA Acute Leukocytosis POA SIRS with organ dysfunction POA History of germ cell tumor and chemotherapy POA History of right orchiectomy POA History of perirectal abscess with I and D POA Hyperlipidemia POA Obesity POA Anxiety disorder POA Discharge Instructions: Follow up with PCP in 3-7 days Follow up at wound care clinic as directed Home Medications: Active Scripts Metronidazole (Metronidazole) 500 Mg Tablet, 1 TAB PO BID for 10 Days, #20 TAB 0 Refills Prov:DENILSON ELLIOTT MD 07/27/24 Levofloxacin (Levofloxacin) 750 Mg Tablet, 1 TAB PO DAILY for 10 Days, #10 TAB 0 Refills Prov:DENILSON ELLIOTT MD 07/27/24 Discontinued Reported Medications Potassium Chloride (Potassium Chloride) 10 Meq Tab.er.prt, 1 TAB PO BID 10/04/22 Ondansetron HCl (Ondansetron HCl) 8 Mg Tablet, 1 TAB PO [id number] PRN for nausea/vomiting 10/04/22 Discontinued Scripts Albuterol Sulfate (Proair Digihaler) 90 Mcg Aer.pw.bas, 90 MCG IH TID PRN for WHEEZING, #1 INHALER Prov:CORKY CHARLES 04/23/23 Benzonatate (Benzonatate) 200 Mg Capsule, 200 MG PO TID PRN for COUGH for 14 Days, #42 CAP Prov:CORKY CHARLES 04/23/23 D-Methorphan Hb/P-Epd HCl/Bpm (Bromfed Dm Cough Syrup) 2 Mg-30 Mg-10 Mg/5 Ml Syrup, 10 ML PO Q4HPRN PRN for COUGH for 10 Days, #100 ML Prov:CORKY CHARLES 11/17/23 Doxycycline Hyclate (Doxycycline Hyclate) 100 Mg Capsule, 100 MG PO BID for 5 Days, #10 CAP 0 Refills Prov:DENILSON ELLIOTT MD 03/23/23 Amoxicillin/Potassium Clav (Augmentin 500-125 Tablet) 500 Mg-125 Mg Tablet, 1 EACH PO DAILY for 5 Days, #5 TAB 0 Refills Prov:DENILSON ELLIOTT MD 03/23/23 New Medications: Levofloxacin (Levofloxacin) 750 Mg Tablet 1 TAB PO DAILY for 10 Days, #10 TAB 0 Refills Metronidazole (Metronidazole) 500 Mg Tablet 1 TAB PO BID for 10 Days, #20 TAB 0 Refills Time spent arranging discharge: 31-60 minutes DENILSON ELLIOTT MD Jul 27, 2024 17:15
== END 2024-07-27 15:20 | disposition home or self-care (01) | DRG 344 ==
LOC: EDH 13:36 → 3DH 13:37 → EDH 23:00
PROVIDERS: ADMIT Internal Medicine; ATTEND Internal Medicine
PROC: 0D9P0ZZ Drainage of Rectum, Open Approach (ICD-10-PCS; principal; 2024-07-23)
DX: K61.1 Rectal abscess (principal); R65.11 Systemic inflammatory response syndrome (SIRS) of non-infectious origin with acute organ dysfunction; L02.215 Cutaneous abscess of perineum; E66.9 Obesity, unspecified; F41.9 Anxiety disorder, unspecified; E78.5 Hyperlipidemia, unspecified; D72.829 Elevated white blood cell count, unspecified; Z85.47 Personal history of malignant neoplasm of testis; Z92.21 Personal history of antineoplastic chemotherapy; Z68.37 Body mass index [BMI] 37.0-37.9, adult
CPT/HCPCS: 36415; 74177; 80048; 80053; 81001; 82550; 83605; 83735; 84100; 84145; 84484; 85025; 85027; 85610; 85730; 87040; 87070; 87076; 87088; 87205; 96365; 96366; 99285; A4450; G0378; J0330; J1100; J1171; J1885; J1956; J2003; J2250; J2371; J2405; J2704; J2710; J3010; J3370; J3490; J7030; Q9967; 3370; A4216; A4222; A4223; A4663; A6445